=== PATIENT | male | born 1955 | race Caucasian/White ===

== ENCOUNTER 2020-12-19 19:02 | Inpatient (IN) | payer OTHER ==
[~2020-12-19] VITALS: Ht 167.6 cm; Wt 67.2 kg
--- NOTE | ~2020-12-19 | EMS ---
[address] [address] EMS Patient Care Report Name: LEONELA BARKLEY Room #: 242-P ADM IN M.R.#: [id number] Admission: 12/19/20 Attend Phys: Aaron Orta MD Discharge: Date of : 51 Report #: [id number] THIS REPORT FOR: //name// Report Transmitted: 12/22/2020 14:51 EMS Care Summary [place], [place]/[facility] Incident [id number] @ 12/19/2020 18:24 Incident Location [address] [place] [address] Patient MEIR BARKLEY Male, 65 Years 1955 Patient Address [address] [place] [address] Patient History Diabetes, Patient Allergies No known allergies, Chief Complaint HYPERGLYCEMIA Disposition Transported No Lights/[place] Dispatch Reason Sick Person Transported To [facility] Narrative PUMPER 37/MEDIC 30 WERE DISPATCHED TO THE ADDRESS LISTED PREVIOUSLY IN THIS REPORT ON A PATIENT WITH BREATHING PROBLEMS. UPON ARRIVAL, EMS OBSERVED ONE MALE PATIENT SITTING UPRIGHT IN A CHAIR. PATIENT WAS TRACKING EMS UPON APPROACH. PATIENT INFORMED EMS THAT HE HAD BEEN FEELING ILL FOR TWO DAYS PRIOR TO ARRIVAL. VITAL SIGNS WERE OBTAINED. PATIENT'S GLUCOSE LEVEL WAS OBSERVED TO BE "HIGH" (>500). PATIENT WAS THEN PLACED ON THE COT AND [place] [address] EMS Patient Care Report Name: LEONELA BARKLEY Room #: 242-P ADM IN M.R.#: [id number] Admission: 12/19/20 Attend Phys: Aaron Orta MD Discharge: Date of : 51 Report #: [id number] WITHOUT INCIDENT. ONCE IN THE AMBULANCE, VITAL SIGN MONITORING CONTINUED. IV ACCESS WAS OBTAINED AND FLUID BOLUS WAS GIVEN. ONCE ENROUTE TO THE RECEIVING FACILITY ([facility]), VITAL SIGN MONITORING CONTINUED AND RADIO RPEORT WAS GIVEN. UPON ARRIVAL AT THE RECEIVING FACILITY, PATIENT WAS MOVED FROM THE AMBULANCE TO THE HOSPITAL COT WITHOIT INCIDENT. VERBAL REPORT WAS GIVEN TO THE PATIENT'S NURSE AND PATIENT CARE WAS TRANSFERRED. Initial Vitals @18:32P: 120,R: 16,BP: 163/73,GCS: 15,Glucose: -2,SpO2: 97,Revised Trauma: 12, @18:45P: 116,R: 16,BP: 152/76,Pain: 0/10,GCS: 15,CO: 0,SpO2: 100,Revised Trauma: 12, Assessments @18:30MENTAL:Person Oriented,Time Oriented,Event Oriented,Place Oriented,SKIN:HEENT:LUNG SOUNDS:ABDOMEN:PELVIS//GI:EXTREMITIES:PULSE:Radial: 2+ Normal,NEURO: Impression Diabetic Hyperglycemia Procedures @18:45Saline Lock 500cc (20 ga) Site: Antecubital-LeftResponse: UnchangedSucceeded@18:30ALS AssessmentResponse: UnchangedSucceeded Timeline 18:23,Call Received 18:23,Dispatch Notified 18:24,Dispatched 18:25,En Route 18:28,On Scene 18:30,At Patient 18:30,ALS Assessment,Response: UnchangedSucceeded, 18:32,BP: 163/73 M,PULSE: 120,RR: 16 R,SPO2: 97 Ox,ETCO2: ,BG: -2,PAIN: ,GCS: 15, 18:45,Saline Lock 500cc 20 ga Site: Antecubital-Left,Response: UnchangedSucceeded, 18:45,BP: 152/76 M,PULSE: 116,RR: 16 R,SPO2: 100 Ox,ETCO2: ,BG: ,PAIN: 0,GCS: 15, 18:49,Depart Scene 18:59,At Destination 19:18,Call Closed Disclaimer v1.1 Copyright 2020 [email or web address] This EMS Care Summary contains data elements from the applicable legal record (which may be displayed differently). It is [place] [address] EMS Patient Care Report Name: LEONELA BARKLEY Room #: 242-P ADM IN [facility]#: [id number] Admission: 12/19/20 Attend Phys: Aaron Orta MD Discharge: Date of : 51 Report #: [id number] information for the following purposes: continuity of care, clinical quality, and state data reporting. The complete legal record is available to ED staff and administrators of the receiving hospital in [facility]'s Patient Tracker. All data is provided "as is."
[2020-12-19 19:02] VITALS: BP 146/65
[2020-12-19 20:12] LABS: HEMATOCRIT 39.1 % (42.0-52.0); HEMOGLOBIN 12.2 gm/dL (14.0-18.0); MCH 34.2 pg (26.0-34.0); MCHC 31.3 g/dL (28.0-37.0); MCV 109.4 fL (80.0-100.0); PLATELET COUNT 269 thou/uL (150-400); RBC 3.57 mil/uL (4.50-6.00); WBC 17.8 thou/uL (4.0-11.0)
[2020-12-19 20:31] LABS: ALBUMIN 3.4 g/dL (3.4-5.0); CALCIUM 8.4 mg/dL (8.5-10.1); CREATININE 2.5 mg/dL (0.7-1.3); MAGNESIUM 1.7 mg/dL (1.8-2.4); TOTAL BILIRUBIN 0.7 mg/dL (0.2-1.0); TOTAL PROTEIN 7.7 g/dL (6.4-8.2)
[2020-12-19 20:33] LABS: POTASSIUM 5.4 mmol/L (3.5-5.1)
[2020-12-19 20:45] LABS: METAMYELOCYTES 1 %
[2020-12-19 20:48] LABS: MACROCYTES 1+
[2020-12-19 21:23] LABS: BE(vivo) -28.1 mmol/L (-2 to +3); HCO3 2.2 mmol/L (22.0-26.0); PO2 146.8 mmHg (80.0-100.0); sO2 97.4 % (92.0-98.0)
[2020-12-19 21:24] LABS: PCO2 10.4 mmHg (35.0-45.0)
[2020-12-19 21:27] LABS: pH 6.951 (7.360-7.450)
[2020-12-19 23:40] VITALS: BP 135/61
[2020-12-20] VITALS (43 sets, daily range): BP systolic 100–150; BP diastolic 55–83
[2020-12-20 00:37] LABS: MAGNESIUM 1.8 mg/dL (1.8-2.4)
[2020-12-20 00:48] LABS: ALBUMIN 3.3 g/dL (3.4-5.0); CALCIUM 8.1 mg/dL (8.5-10.1); CREATININE 2.4 mg/dL (0.7-1.3); PHOSPHORUS 5.9 mg/dL (2.6-4.7)
--- NOTE | 2020-12-20 01:22 | NUR ---
PT ARRIVED FROM ER VIA CART. PT A&OX3, ON RA SATING 100%, NO C/O PAIN OR N/V. PT ATTACHED TO ICU MONITOR AND ASSESSED PER ICU PROTOCOL. RENEWABLE ENERGY TECHNICIAN BISHOP CALLED AND PUTTING ORDERS IN. DOMINGO INSERTED FOR STRICT I & O. INSULIN GTT INFUSING, FOLLOWING DKA PROTOCOL FOR IVF ADJUSTMENT.
[2020-12-20 03:14] LABS: URINE BILIRUBIN NEGATIVE (Negative); URINE BLOOD 2+ (Negative); URINE CLARITY CLEAR; URINE COLOR YELLOW; URINE GLUCOSE-RANDOM* 3+ (Negative); URINE KETONES 3+ (Negative); URINE LEUKOCYTES-REFLEX NEGATIVE (Negative); URINE NITRITE-REFLEX NEGATIVE (Negative); URINE PROTEIN (DIPSTICK) 1+ (Negative); URINE SPECIFIC GRAVITY 1.025 (1.005-1.035); URINE UROBILINOGEN 0.2 E.U./dl (0.2-1.0)
[2020-12-20 03:28] LABS: BACTERIA-REFLEX 1-9 Few /HPF (None Seen); MUCUS 4-6 Moderate strn/LPF (None Seen); SQUAMOUS 0-3 Few /LPF (0-3); URINE RBC 3-10 Few /HPF (NONE SEEN); URINE WBC-REFLEX 0-5 Rare /HPF (0-5)
[2020-12-20 03:29] LABS: CELLULAR CASTS 4-10 Moderate /LPF (None Seen); CRYSTALS None Seen /LPF (None Seen); HYALINE CASTS 4-10 Moderate /LPF (None Seen)
[2020-12-20 03:31] LABS: AMP/METHAMP Negative (Negative); BARBITURATES Negative (Negative); BENZODIAZEPINES Negative (Negative); COCAINE Negative (Negative); METHADONE Negative (Negative); OPIATES Negative (Negative); PCP Negative (Negative)
[2020-12-20 06:23] LABS: CHOLESTEROL 125 mg/dL (<200); HDL CHOLESTEROL 30 mg/dL (>40); LDL CHOLESTEROL 43 mg/dL (<100); TC:HDL 4.2 Ratio (Not establshd); TRIGLYCERIDE 260 mg/dL (<150); VLDL 52 mg/dL (<40)
[2020-12-20 06:34] LABS: SERUM ASSESSMENT Clear
[2020-12-20 06:58] LABS: HEMATOCRIT 35.2 % (42.0-52.0); HEMOGLOBIN 11.5 gm/dL (14.0-18.0); MCH 33.6 pg (26.0-34.0); MCHC 32.6 g/dL (28.0-37.0); RBC 3.41 mil/uL (4.50-6.00); RDW 13.1 % (10.5-14.5)
[2020-12-20 07:00] LABS: MCV 103.2 fL (80.0-100.0)
[2020-12-20 07:08] LABS: ALBUMIN 3.3 g/dL (3.4-5.0); CALCIUM 8.3 mg/dL (8.5-10.1); CREATININE 2.2 mg/dL (0.7-1.3); MAGNESIUM 1.6 mg/dL (1.8-2.4); PHOSPHORUS 1.9 mg/dL (2.5-4.9)
[2020-12-20 07:09] LABS: POTASSIUM 3.7 mmol/L (3.5-5.1)
--- NOTE | 2020-12-20 07:37 | EKG ---
[address] [place] [address] ELECTROCARDIOGRAM REPORT Name: LEONELA BARKLEY Room #: 242-P ADM IN M.R.#: [id number] Admission: 12/19/20 Attend Phys: Ronen Johnston Discharge: Date of : 51 Report #: [id number] [facility] Test Date: 2020-12-20 Test Time: 07:13:50 Pat Name: LEONELA BARKLEY Department: Room: 242 P Gender: M Oracle Ascp Consultant: : 1955 Requested By: Shayla Guardado Order Number: [id number] MD: Alberto Mccall Measurements Intervals [place] Rate: 101 P: 84 DE: 206 QRS: 8 QRSD: 86 T: 29 QT: 366 QTc: 475 Interpretive Statements Sinus tachycardia Borderline T wave abnormalities No previous ECG available for comparison Electronically Signed On 12-20-2020 7:37:14 CDT by Alberto Mccall [email or web address] <ELECTRONICALLY SIGNED> By: Alberto Mccall MD, [facility] 12/20/20 0737 0713 2 Alberto Mccall MD, FACC /EPI
[2020-12-20 08:05] LABS: FOLIC ACID 50.9 ng/mL (8.6-58.9)
[2020-12-20 09:03] LABS: APTT 29.6 Seconds (24.5-32.8); INR 1.1
[2020-12-20 10:47] LABS: ALBUMIN 2.7 g/dL (3.4-5.0); CALCIUM 8.1 mg/dL (8.5-10.1); MAGNESIUM 1.3 mg/dL (1.8-2.4); PHOSPHORUS 0.8 mg/dL (2.6-4.7); POTASSIUM 3.3 mmol/L (3.5-5.1)
[2020-12-20 15:38] LABS: CALCIUM 7.5 mg/dL (8.5-10.1); CREATININE 1.8 mg/dL (0.7-1.3); POTASSIUM 3.4 mmol/L (3.5-5.1)
--- NOTE | 2020-12-20 15:53 | 2DMMODE ---
[facility] [place] [address] 2 D/M-MODE ECHOCARDIOGRAM Name: LEONELA BARKLEY Room #: 242-P ADM IN M.R.#: [id number] Admission: 12/19/20 Attend Phys: Aaron Orta MD Discharge: Date of : 51 Report #: [id number] THIS REPORT FOR: cc: Jesus Avitia MD, James E. MD Santiago, Patrick MD [facility] ~ APPROVED REPORT Study performed: 12/20/2020 15:08:04 EXAM: Comprehensive 2D, Doppler, and color-flow Echocardiogram Patient Location: ICU Room #: 242 Status: routine BSA: 1.76 HR: 85 bpm BP: 124/60 mmHg Rhythm: NSR Other Information Study Quality: Technically Difficult Technically limited study due to uncooperative patient, inability to position patient. Indications Diabetes Dyspnea Elevated Troponin Aortic Valve AoV Peak Avni.: 1.46 m/s AO Peak Gr.: 8.57 mmHg LVOT Max P.54 mmHg LVOT Max V: 0.94 m/s Pulmonary Valve PV Peak Avni.: 0.86 m/s PV Peak Gr.: 2.99 mmHg Left Ventricle The left ventricle is normal size. There is normal LV segmental wall motion. There is normal left ventricular wall thickness. Left ventricular systolic function is normal. The left ventricular ejection fraction is within the normal range. LVEF is 55-60%. The diastolic function is abnormal. [facility] [address] [place] [address] 2 D/M-MODE ECHOCARDIOGRAM Name: LEONELA BARKLEY Room #: 242-P ADM IN M.R.#: [id number] Admission: 12/19/20 Attend Phys: Aaron Orta MD Discharge: Date of : 53 Report #: [id number] Right Ventricle The right ventricle is normal size. The right ventricular systolic function is normal. Atria The left atrium size is normal. The right atrium size is normal. Aortic Valve The Aortic valve is sclerotic. No aortic regurgitation is present. There is no aortic valvular stenosis. Mitral Valve The mitral valve is normal in structure. There is no mitral valve regurgitation noted. No evidence of mitral valve stenosis. Tricuspid Valve The tricuspid valve is normal in structure. There is no tricuspid valve regurgitation noted. Pulmonic Valve The pulmonary valve is normal in structure. There is no pulmonic valvular regurgitation. Great Vessels The aortic root is normal in size. IVC is normal in size and collapses >50% with inspiration. Pericardium There is no pericardial effusion. <Conclusion> Normal left ventricular size/wall thickness Ejection fraction 60% Grade 1 diastolic dysfunction Normal right ventricular size/function Normal atrial size Color-flow Doppler studies performed of the aortic/mitral/tricuspid/pulmonary valve Aortic valve not well seen but mildly sclerotic, no stenosis detected Normal mitral valve structure and function No tricuspid valve insufficiency detected [facility] [address] [place] [address] 2 D/M-MODE ECHOCARDIOGRAM Name: LEONELA BARKLEY Room #: 242-P ADM IN M.R.#: [id number] Admission: 12/19/20 Attend Phys: Aaron Orta MD Discharge: Date of : 53 Report #: [id number] No pericardial effusion Normal aortic root size. <ELECTRONICALLY SIGNED> By: Mayito Worrell MD, FACC 12/20/20 1553 155 52 Mayito Worrell MD, FACC /INF
--- NOTE | 2020-12-20 16:40 | NUR ---
Chart review, discussed during los and unit rounds. Enoc resting with eye closed. Cm visited with his Micaela [phone], intro to cm and dcp. He lives with another person it is compilated on [place]. He is independent, manage own medication, able to give himself his insulin. meter that checks his bs goes to our son Hi phone # [phone], also if high or low. Have 3 children. Does drink daily. no dme. drives vehicle. has Medicare insurance. retired. Had covid vaccine, last given on 06/16/20. No rehab or hh in the past. Will cont. following as needed for dc needs.
--- NOTE | 2020-12-20 16:57 | NUR ---
Attempted to call Myrtle Washburn for update, no response.
[2020-12-21] VITALS (21 sets, daily range): BP systolic 101–163; BP diastolic 58–90
[2020-12-21 02:06] LABS: GLYCOHEMOGLOBIN (HGB A1C) 9.7 % (4.8-5.6)
[2020-12-21 03:13] LABS: ABSOLUTE NEUTROPHILS 5.1 thou/uL (1.4-8.2); BASOPHILS 0.3 % (0.0-2.0); EOSINOPHILS 0.4 % (0.0-3.0); HEMATOCRIT 29.6 % (42.0-52.0); HEMOGLOBIN 10.4 gm/dL (14.0-18.0); LYMPHOCYTES 27.3 % (24.0-44.0); MCH 34.5 pg (26.0-34.0); MCHC 35.1 g/dL (28.0-37.0); MCV 98.5 fL (80.0-100.0); MONOCYTES 10.4 % (1.0-8.0); PLATELET COUNT 178 thou/uL (150-400); POLYS 61.6 % (36.0-66.0); WBC 8.2 thou/uL (4.0-11.0)
[2020-12-21 05:59] LABS: ALBUMIN 2.4 g/dL (3.4-5.0); CALCIUM 7.9 mg/dL (8.5-10.1); CREATININE 1.3 mg/dL (0.7-1.3); PHOSPHORUS 1.9 mg/dL (2.5-4.9); POTASSIUM 3.2 mmol/L (3.5-5.1); TOTAL BILIRUBIN 0.3 mg/dL (0.2-1.0); TOTAL PROTEIN 5.7 g/dL (6.4-8.2)
--- NOTE | 2020-12-21 07:42 | NUR ---
ASSUMED CARE AT 1900. PT ANXIOUS/NERVOUS BUT PLEASANT/COOPERATIVE W/CARES. NIGHT WENT ON, HE BECAME MORE CONFUSED, KEPT ASKING ABOUT HIS DOMINGO AND HOUW TO URINATE. WOKE UP AROUND 0200, THINKING HE WAS "IN THE WRONG PLACE" AND NEEDED TO GO HOME; REORIENTED HIM TO SITUATION, HE CALMED DOWN AND SEEMED TO UNDERSTAND WHY HE WAS IN THE ICU. 2200 APTT THERAPEUTIC, DAILY DRAW ORDERED, HEPARIN INFUSING OVERNIGHT. 0630-SPOKE TO PT'S SON CONCEPCION, WHO SAID HE HAD A MISSED CALL FROM PT AROUND 0230. DISCUSSED THIS MAY HAVE BEEN WHEN PT THOUGHT HE NEEDED TO LEAVE IN THE MIDDLE OF THE NIGHT, AND EXPLAINED PT MAY BE HAVING SOME CONFUSION/DELIRIUM ASSOCIATED w/ HIS CURRENT ILLNESS. ALSO DISCUSSED CARDIOLOGY'S PLAN FOR A CARDIAC CATH ONCE RENAL CLEARS PT, CONCEPCION IS IN SUPPORT OF THIS, STATING PT DOESN'T GET ENOUGH ATTENTION/MEDICAL CARE AT HOME w/HIS ROOMMATE. PT IRRITABLE AT SHIFT CHANGE, WANTING TO LEAVE AMA. ONCOMING AND OFFGOING RN SPOKE w/PT, EXPLAINED AGAIN ABOUT DKA, PNA, AND PT'S CARDIAC CONCERNS, BUT HE STATED "I WANT TO JUST GO TO MY DENTIST TO CLEAR THIS UP." WHEN TOLD HIS DENTIST COULDN'T MANAGE THIS, HE SAID "WELL I HAVE TWO DOCTORS WHO CAN TAKE CARE OF ME." ASKED THAT HE HAVE BREAKFAST AND WAIT FOR THE DOCTOR'S TO ROUND AND TALK WITH HIM BECAUSE HIS CURRENT CONDITION IS VERY SERIOUS. PT JUST KEPT STATING "YOU ALL ARE WEIRD, THESE DOCTORS ARE WEIRD" AND TALKING IN CIRCLES. PT HANDED OFF TO DAY RN.
--- NOTE | 2020-12-21 08:48 | EKG ---
[address] [address] ELECTROCARDIOGRAM REPORT Name: LEONELA BARKLEY Room #: 242-P ADM IN M.R.#: [id number] Admission: 12/19/20 Attend Phys: Aaron Orta MD Discharge: Date of : 51 Report #: [id number] [facility] ED Test Date: 2020-12-19 Test Time: 20:27:49 Pat Name: LEONELA BARKLEY Department: Room: 242 Gender: M Advertising Production Manager: unknown : 1955 Requested By: Antonio Jorge Order Number: [id number] MD: Mayito Worrell Measurements Intervals [place] Rate: 115 P: -87 [place]: 173 QRS: 3 QRSD: 96 T: 57 QT: 329 QTc: 455 Interpretive Statements NSR Anteroseptal infarct, old No previous ECG available for comparison Electronically Signed On 12-21-2020 8:47:32 CDT by Mayito Worrell [email or web address] <ELECTRONICALLY SIGNED> By: Mayito Worrell MD, LOCATED [facility]IN [facility] 12/21/20 0847 26 26 Mayito Worrell MD, FACC /EPI
--- NOTE | 2020-12-21 12:02 | NUR ---
NSTEMI with elevated Troponins. Placed on a Heparin gtt. DKA and on insulin gtt. Per attending MD AM review: Scheduled Cath today and pending results. Son Hi at [phone] and spouse Micaela at [phone] remain involved and updated on care and condition per nursing and MD teams. CM will follow for discharge needs once identified after MD review and therapy evaluations. CM asked for MD to place therapy orders.
[2020-12-21 13:37] LABS: HEMATOCRIT 33.2 % (42.0-52.0); HEMOGLOBIN 11.6 gm/dL (14.0-18.0); MCH 34.5 pg (26.0-34.0); MCHC 34.9 g/dL (28.0-37.0); MCV 98.8 fL (80.0-100.0); RBC 3.36 mil/uL (4.50-6.00); RDW 13.4 % (10.5-14.5); WBC 8.6 thou/uL (4.0-11.0)
[2020-12-21 14:10] LABS: APTT 54.7 Seconds (24.5-32.8); INR 0.97; PROTIME 10.6 Seconds (10.5-12.1)
--- NOTE | 2020-12-21 16:06 | CATHLAB ---
[facility] [place] [address] INVASIVE PROCEDURE REPORT Name: LEONELA BARKLEY Room #: 242-P ADM IN M.R.#: [id number] Admission: 12/19/20 Attend Phys: Aaron Orta MD Discharge: Date of : 53 Report #: [id number] THIS REPORT FOR: cc: Jesus Avitia MD, James E. MD Park, Jin S. MD ~ APPROVED REPORT Study performed: 12/21/2020 12:48:23 Patient Details Patient Status: In-Patient Room #: The patient is a 65 year-old male Event Personnel Apolinar Kemp Railroad Watchman, Milton Morel RN RN, Magda Em RTR Scrub, Kishor Little RTR Monitor Procedures Performed Art Access - R femoral artery* Left Heart Cath w/or w/o Coronaries [id number] [facility] [address] [facility] w/wo Plasty Single LAD 139596 21448 Initial Mod Sed Same Phys/QHP Gr5y 457532 29757 Mod Sed Same Phys/QHP Ea [id number] Indication Abnormal ECG, Non-STEMI , Dyspnea Risk Factors Peripheral Vascular Disease, HypercholesterolemiaPhysical Activity, Hypertension, Diabetes Tobacco History () Previous Procedures/Diagnoses Previous Femoral Procedure, Previous Vascular Surgery Procedure Narrative The Right Groin^ was infiltrated with 1% Lidocaine subcutaneous anesthesia. A PINNACLE 4FR Sheath #[id number] sheath was inserted into the RFA^. Coronary angiography was performed using coronary diagnostic catheters. The right coronary system was accessed and visualized with a JR4 catheter. The left coronary system was accessed and visualized with a JL4 catheter. The left ventricle was accessed and visualized with a PIGTAIL catheter. Left ventricular/Aortic Valve gradient assessed via catheter pullback. The patient tolerated the procedure well and there were no complications associated with the [facility] [address] [place] [address] INVASIVE PROCEDURE REPORT Name: LEONELA BARKLEY Room #: 242-P [facility] IN ..#: [id number] Admission: 12/19/20 Attend Phys: Aaron Orta MD Discharge: Date of : 51 Report #: [id number] procedure. There was no hematoma. Intraoperative Conscious Sedation Sedation start time: 13:36 Case end Time: 14:43 Fentanyl 100 mcg Versed 1 mg Fluoro Time: 16.60 minutes Dose: DAP 46630.20 cGycm2 3358 mGy Contrast Type and Amount: Visipaque 230 ml Coronary Angiography The patient's coronary anatomy is co- dominant. Diagnostic Cath Left Main The left main artery is a large-caliber vessel, calcified with mild disease in the proximal and distal segments. LAD This is a moderate-sized caliber vessel, traverses the anterior wall and wraps around the apex. There is moderate calcifications in the proximal and mid segments. Within the proximal segment, there is a severe discrete stenosis of 95%. Diagonal 1 This is a small to moderate-sized caliber vessel, patent with no flow-limiting lesions. Diagonal 2 This is a small to moderate-sized caliber vessel, patent with no flow-limiting lesions. Circumflex Left circumflex artery is a moderate-sized caliber vessel, codominant. There is mild disease at the ostium, 20%. OM1 This is a small to moderate-sized caliber vessel, patent with no flow-limiting lesions. OM2 This is a moderate-sized caliber vessel, divides into 2 branches. This vessel is patent with no flow-limiting lesions. OM3 This is a small to moderate-sized caliber vessel, patent with no flow-limiting lesions. Right Coronary The RCA is a patent vessel, with no flow-limiting lesions. R PDA This is a small caliber vessel, appears to be occluded proximally. There are partial collaterals to the distal vessel from the left coronary artery. Left Ventriculography Left Ventriculography was not performed. Ejection Fraction was 60-65% based off patient's Echocardiogram. An LVEDP was measured and there is no gradient across the outflow tract. Hemodynamics [facility] [address] [place] [address] INVASIVE PROCEDURE REPORT Name: FILIPPOLEONELA Room #: 242-P [facility] IN M.R.#: [id number] Admission: 12/19/20 Attend Phys: Aaron Orta MD Discharge: Date of : 53 Report #: [id number] The aortic pressure is 146/61 mmHg with a mean of 95 mmHg. The left ventricular pressure is 158/10 mmHg with a mean of mmHg. The left ventricular end diastolic pressure is 20 mmHg. There was no gradient across the aortic valve upon pullback. PCI Technique Lesion Percutaneous coronary intervention was performed on the proximal left anterior descending artery segment. The lesion stenosis prior to intervention was 95% with RICKY 3 flow. A VISTA 6FR XB 3.5 #775135 Guide Catheter was used to engage the LAD ostium. A Luge Wire .014 x 182CM #[id number] Interventional Guidewire was used to cross the lesion. BALLOON DILATION A Balloon catheter Euphora RX 2.5 x 12 #[id number] was inserted and inflated up to 18.00atm for 34seconds. A balloon catheter NC Euphora 2.5x12mm was inserted and inflated up to 24 trung for 37 sec. additional inflations: 18 trung for 10 sec. A balloon catheter NC Euphora 2.36o61sg was inserted and inflated up to 6 trung for 6 sec. Additional inflations: 16 trung for 22 sec, and 16 trung for 11 sec. STENT DEPLOYMENT A stent RESOLUTE KAYY RX 3.0 X 12 #[id number] was inserted and inflated up to 16.00atm for 23seconds. POST STENT DEPLOYMENT BALLOON DILATION A Balloon catheter Euphora NC RX 3.25 x 6 #[id number] was inserted and inflated up to 18.00atm for 20seconds. Additional Inflation: 18.00atm for 10seconds. Final angiography reveals 5 % stenosis with RICKY 3 flow. COMMENTS Using the 2.5 mm noncompliant balloon was unsuccessful in fully dilating the lesion. There was a residual stenosis at the lesion site. I used a second loulou wire to help dilate the lesion. A 2.75 mm noncompliant balloon, was inflated up to 16 trung resulting in successful expansion of the stenotic area. Conclusion 1. Successful insertion of a drug-eluting stent into the proximal LAD stenosis. 2. There is mild disease in the left main and left circumflex arteries. [facility] [address] [place] [address] INVASIVE PROCEDURE REPORT Name: LEONELA BARKLEY Room #: 242-P ADM IN M.R.#: [id number] Admission: 12/19/20 Attend Phys: Aaron Orta MD Discharge: Date of : 51 Report #: [id number] 3. This is a codominant system. 4. 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 5. There is normal LV systolic function. 6. Recommend dual antiplatelet therapy and aggressive risk factor management. <ELECTRONICALLY SIGNED> By: Apolinar Kemp MD 12/21/20 1605 04 04 Apolinar Kemp MD /INF
--- NOTE | 2020-12-21 18:36 | NUR ---
PT HAD A CARDIAC CATH PERFROMED TODAY IN WHICH HE HAD 1 STENT PLACED IN LAD. PT WAS INITALLY VERY AGITATED AND CONFUSED THIS MORNING AND AFTER 8AM WHEN FAMILY ARRIVED PT IS MUCH MORE PLEASANT HOWEVER, REMAINS CONFUSED. PT WAS OFF THE UNIT FROM APPROX 1145AM-545PM TODAY. HOMESTATSIS 1730. SITE IS CLEAN, NO REDNESS, SWELLING OR SIGNS OF COMPLICATIONS AT SURGICAL SITE.
[2020-12-22] VITALS (50 sets, daily range): BP systolic 79–152; BP diastolic 44–87
[2020-12-22 06:25] LABS: HEMATOCRIT 33.9 % (42.0-52.0); HEMOGLOBIN 11.9 gm/dL (14.0-18.0); MCH 34.2 pg (26.0-34.0); MCV 97.7 fL (80.0-100.0); RBC 3.47 mil/uL (4.50-6.00); RDW 12.8 % (10.5-14.5); WBC 9.7 thou/uL (4.0-11.0)
[2020-12-22 07:04] LABS: ALBUMIN 2.5 g/dL (3.4-5.0); CALCIUM 7.8 mg/dL (8.5-10.1); CREATININE 1.1 mg/dL (0.7-1.3); MAGNESIUM 1.4 mg/dL (1.8-2.4); PHOSPHORUS 2.6 mg/dL (2.5-4.9); TOTAL BILIRUBIN 0.7 mg/dL (0.2-1.0); TOTAL PROTEIN 6.4 g/dL (6.4-8.2)
--- NOTE | 2020-12-22 08:11 | EKG ---
[place] [address] [facility] [place] [address] ELECTROCARDIOGRAM REPORT Name: LEONELA BARKLEY Room #: 242-P ADM IN M.R.#: [id number] Admission: 12/19/20 Attend Phys: Aaron Orta MD Discharge: Date of : 51 Report #: [id number] [facility] Test Date: 2020-12-21 Test Time: 18:41:09 Pat Name: LEONELA BARKLEY Department: Room: 242 P Gender: M Day Camp Counselor: FSCHWALGIULIANO : 1955 Requested By: Apolinar Kemp Order Number: [id number] MD: Alberto Mccall Measurements Intervals [place] Rate: 72 P: 34 PA: 181 QRS: 6 QRSD: 85 T: 12 QT: 435 QTc: 477 Interpretive Statements Sinus rhythm Anterior infarct, old Baseline wander in lead(s) V1 Compared to ECG 12/20/2020 07:13:50 Septal Q waves are now present Sinus tachycardia no longer present T-wave abnormality no longer present Electronically Signed On 12-22-2020 8:11:42 CDT by Alberto Mccall [email or web address] <ELECTRONICALLY SIGNED> By: Alberto Mccall MD, [facility] 12/22/20 0811 1841 184 Alberto Mccall MD, [facility] /EPI
--- NOTE | 2020-12-22 08:16 | NUR ---
PT RESTLESS & BELLIGERANT. I'M NOT STAYING HERE. PULLING OFF ALL LEADS-GET THIS SH OFF ME.ORIENTED TO NAME & ,YEAR & MONTH ONLY. EXPLAINED EVENTS.STATED MY HEART ATTACK WAS MILD & CONT'S TO PULL OFF ALL LEADS. I'M OUT OF HERE. CIWA 16. PAGE TO THRU BEEPER.--VW
[2020-12-23] VITALS (69 sets, daily range): BP systolic 65–145; BP diastolic 35–74
[2020-12-23 05:46] LABS: ALBUMIN 1.7 g/dL (3.4-5.0); CALCIUM 6.2 mg/dL (8.5-10.1); CREATININE 0.7 mg/dL (0.7-1.3); PHOSPHORUS 1.9 mg/dL (2.5-4.9); POTASSIUM 3.6 mmol/L (3.5-5.1)
--- NOTE | 2020-12-23 06:06 | NUR ---
PT REMAINS RESTRAINED DUE TO AGGITATION AND IMPULSIVENESS. PT ALERT TO SELF AND TIME. NO ACUTE EVENTS OVERNIGHT. WILL CONTINUE TO ASSESS FOR CIWA.
[2020-12-23 07:05] LABS: HEMATOCRIT 34.1 % (42.0-52.0); HEMOGLOBIN 11.3 gm/dL (14.0-18.0); RBC 3.41 mil/uL (4.50-6.00); RDW 13.1 % (10.5-14.5); WBC 8.2 thou/uL (4.0-11.0)
--- NOTE | 2020-12-23 08:25 | EKG ---
[place] [address] [facility] [place] [address] ELECTROCARDIOGRAM REPORT Name: LEONELA BARKLEY Room #: 242-P ADM IN M.R.#: [id number] Admission: 12/19/20 Attend Phys: Aaron Orta MD Discharge: Date of : 51 Report #: [id number] [facility] Test Date: 2020-12-23 Test Time: 08:07:28 Pat Name: LEONELA BARKLEY Department: Room: 242 P Gender: M Java Developer Architect: LOREN : 1955 Requested By: Myrtle Seth Order Number: [id number] MD: Alberto Mccall Measurements Intervals [place] Rate: 74 P: -21 [place]: 216 QRS: -3 QRSD: 90 T: 109 QT: 482 QTc: 535 Interpretive Statements Sinus rhythm Borderline prolonged IL interval Probable anterior infarct, age indeterminate Lateral leads are also involved Prolonged QT interval Compared to ECG 12/21/2020 18:41:09 Prolonged QT interval now present Anterolateral T wave abnormality is new Electronically Signed On 12-23-2020 8:24:53 CDT by Alberto Mccall [email or web address] <ELECTRONICALLY SIGNED> By: Alberto Mccall MD, [facility] 12/23/20 0824 6 Alberto Mccall MD, [facility] /EPI
--- NOTE | 2020-12-23 12:13 | NUR ---
If pt unable to start taking po in next 24-48hr, suggest clinimix PPN at goal 100ml/hr.
--- NOTE | 2020-12-23 15:40 | NUR ---
Discussed during los and unit rounds., restraints for aggressiveness, impulsive agitation and , trying pull at lines. Refusing po medication. No anticipated dc over the weekend, will cont. following as needed for dc needs. Son brought in copy of his insurance cards, cm fax to registration and put copy on his chart.
[2020-12-24] VITALS (44 sets, daily range): BP systolic 90–168; BP diastolic 47–82
--- NOTE | 2020-12-24 04:36 | NUR ---
Slow progress toward goals. Off Precedex and levophed now; CIWA currently 4. Blood sugars still running > 200 despite Lantus and sliding scale. Remains on room air, sat > 95%. Urine output more than adequate. Has slept most of night without co.
--- NOTE | 2020-12-24 04:52 | NUR ---
Levophed and Precedex gtts restarted. CIWA back up to 9, pt also c/o of light sensitivity.
[2020-12-24 05:23] LABS: HEMATOCRIT 32.7 % (42.0-52.0); HEMOGLOBIN 11.1 gm/dL (14.0-18.0); MCH 33.1 pg (26.0-34.0); MCHC 33.8 g/dL (28.0-37.0); RBC 3.34 mil/uL (4.50-6.00); RDW 13.1 % (10.5-14.5); WBC 9.4 thou/uL (4.0-11.0)
[2020-12-24 05:55] LABS: ALBUMIN 2.1 g/dL (3.4-5.0); CALCIUM 7.9 mg/dL (8.5-10.1); CREATININE 1.1 mg/dL (0.7-1.3); PHOSPHORUS 3.5 mg/dL (2.5-4.9); POTASSIUM 3.5 mmol/L (3.5-5.1)
--- NOTE | 2020-12-24 14:20 | NUR ---
THIS RN TOOK OVER PATIENT AT 0700 FROM LOCOMOTIVE ENGINEER NURSE. PT WAS ON PRECEDEX DRIP. TRIED TURNING IT OFF AND GIVING ATIVAN. PT BECAME AGITATED AND WANTED TO LEAVE. PRECEDEX WAS TURNED BACK ON. PT RECEIVING PRN ATIVAN FOR AGITATION. PT CURRENTLY RESTING AND IS CALM. PT SATTING >95% ON ROOM AIR. WILL CONTINUE TO MONITOR
--- NOTE | 2020-12-24 15:49 | NUR ---
pt both rings were handed to son Berto today.
--- NOTE | 2020-12-24 16:07 | NUR ---
PT BRACELET WAS GIVEN TO PT SON SERENITY TODAY.
[2020-12-25] VITALS (47 sets, daily range): BP systolic 89–166; BP diastolic 53–91
[2020-12-25 04:21] LABS: HEMATOCRIT 32.8 % (42.0-52.0); HEMOGLOBIN 11.3 gm/dL (14.0-18.0); MCHC 34.6 g/dL (28.0-37.0); MCV 98.3 fL (80.0-100.0); RBC 3.33 mil/uL (4.50-6.00); RDW 13.2 % (10.5-14.5); WBC 8.7 thou/uL (4.0-11.0)
[2020-12-25 04:22] LABS: CALCIUM 8.3 mg/dL (8.5-10.1); CREATININE 0.8 mg/dL (0.7-1.3); MAGNESIUM 1.4 mg/dL (1.8-2.4); PHOSPHORUS 3.3 mg/dL (2.5-4.9)
[2020-12-25 04:25] LABS: POTASSIUM 2.9 mmol/L (3.5-5.1)
--- NOTE | 2020-12-25 06:55 | NUR ---
PT ALERT AND ORIENT TIMES TWO, FORGETFUL. SON FLYNN CALLED FOR STATUS UPDATE. DID ALSO SPEAK TO PARTNER. TITRATED PRECEDEX FOR LIGHT SEDATIONG. WRIST RESTRAINTS INTACT AND UPDATED. SR PER MONITOR. UO ADEQUATE, NO BM. REPLACED K+ THIS AM, NEXT REDRAW AT 0830. CIWA = 7. L UA TL PICC INTACT, PATENT. SLOW PROGRESS TOWARDS DC GOALS. WILL CONTINUE TO MONITOR.
--- NOTE | 2020-12-25 18:20 | NUR ---
PT IS ALERT TO SELF AND THE MAJORITY OF HIS FAMILY MEMBERS, HE IS STILL CONFUSED ON WHERE HE IS LOCATED AND WHAT CITY WE ARE IN. WILL OCCASSIONALLY SEE THINGS THAT ARE NOT THERE. HIS FAMILY HAS BEEN VISITING HIM ONE AT A TIME THROUGHOUT THE DAY AND HAS BEEN VERY HELPFUL TO THE PATIENT AND STAFF WITH KEEPING PATIENT CALM AND ORIENTED. PT WAS OFF PRECEDEX DRIP FOR APPROX 4HRS TODAY TO REASSESS ORIENTATION AND TO AWAKEN PATIENT FULLY TO ASSESS ABILITY TO SWALLOW. PT ABLE TO TOLERATE APPLESAUCE AND ICE CHIPS WELL PURREED FOOD TODAY. PT ABLE TO FOLLOW COMMANDS. WILL NEED PT/OT AND SPEECH EVAL HARISH TO START WORKING ON MOBILITY FOR THE PATIENT HE HAS GOTTEN VERY STIFF AND PAINFUL JOINTS. NURSING STAFF PROVIDED ROM EXERCISES TO PATIENT. WAS NOT ABLE TO GIVE PT PO METOPROLOL TODAY DUE TO PATIENT NOT BEING ABLE TO SWALLOW PILLS AND THIS MEDICATION NOT BEING ABLE TO BE CRUSHED. PT B/P ALSO BORDERLINE HYPOTENSIVE AT TIMES AND MAY NOT TOLERATIVE IVP METOPROLOL. WILL CONTINUE TO REASSESS, PROMOTE SAFETY AND FOLLOW POC.
[2020-12-26] VITALS (23 sets, daily range): BP systolic 103–156; BP diastolic 52–126
[2020-12-26 04:53] LABS: HEMATOCRIT 28.6 % (42.0-52.0); HEMOGLOBIN 9.8 gm/dL (14.0-18.0); MCHC 34.4 g/dL (28.0-37.0); MCV 98.7 fL (80.0-100.0); RBC 2.9 mil/uL (4.50-6.00); RDW 13.1 % (10.5-14.5); WBC 10.3 thou/uL (4.0-11.0)
[2020-12-26 05:10] LABS: ALBUMIN 1.7 g/dL (3.4-5.0); CALCIUM 7.8 mg/dL (8.5-10.1); PHOSPHORUS 3.2 mg/dL (2.5-4.9); POTASSIUM 3.3 mmol/L (3.5-5.1)
--- NOTE | 2020-12-26 06:31 | NUR ---
FREQUENTLY MONITORED ORIENTATION STATUS. PT COOPERATIVE AND PLEASANT MOST OF SHIFT. TITRATED PRECEDEX DOWN TOLERATED. WILL CONTINUE TO MONITOR.
--- NOTE | 2020-12-26 08:50 | NUR ---
Chart review. Discussed during am unit rounds and los with hospitalist. Restraints dc per report. bedside nurses assist him with breakfast. Patient A & O x self and son. He cont. to ask if he was staying here tonight. Noted he's clam. Son at bedside, Hi. Cm visited with son and patient, education on dcp, therapy possible needed for weakness. New orders pt/ot eval. Son had question about support after dc, closer to being able to return home, don't want him around alcohol and his roommate drinks as well. Education on places like [facility] inpt alcohol support after skilled rehab if needed. Son agrees with dcp. Will cont. following as needed or dc needs.
[2020-12-27 04:23] VITALS: BP 173/86
[2020-12-27 05:13] LABS: HEMOGLOBIN 10.7 gm/dL (14.0-18.0); MCHC 34.5 g/dL (28.0-37.0); MCV 98.7 fL (80.0-100.0); RBC 3.14 mil/uL (4.50-6.00); RDW 13.3 % (10.5-14.5); WBC 10.5 thou/uL (4.0-11.0)
[2020-12-27 05:20] LABS: ALBUMIN 2.1 g/dL (3.4-5.0); CALCIUM 8.4 mg/dL (8.5-10.1); CREATININE 1.2 mg/dL (0.7-1.3); PHOSPHORUS 2.8 mg/dL (2.5-4.9); POTASSIUM 3.3 mmol/L (3.5-5.1)
[2020-12-27 08:00] VITALS: BP 135/70
--- NOTE | 2020-12-27 08:37 | NUR ---
PT WAS TRANSFER FROM ICU AT 2345, PT VERY RESTLESS AND PICKING AT DEVICES. IN REPORT CIWA WAS STATED AT A 11. POC FOR CIWA WAS ATIVAN. CIWA'S WERE REQUIRING 2MG ATIVAN Q2. FLUIDS RESTARTED. IV LOPRESSOR GIVEN AT 0300 FOR HR IN 120-130. DOMINGO IN WITH GOOD OUTPUT. SPOKE TO PT SON ABOUT MOVE TO STEP DOWN FROM ICU AND VISITOR POLICY. PT FINALLY SLEEPING AT 0530.
[2020-12-27 12:00] VITALS: BP 134/68
--- NOTE | 2020-12-27 13:55 | EKG ---
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: LOREN : 1955 Requested By: Myrtle Seth Order Number: [id number] MD: Mayito Worrell Measurements Intervals [place] Rate: 110 P: MD: QRS: -2 QRSD: 87 T: 168 QT: 295 QTc: 400 Interpretive Statements SINUS TACHYCARDIA Ventricular premature complex Anteroseptal infarct, age indeterminate Baseline wander in lead(s) V4 Compared to ECG 12/23/2020 08:07:28 Ventricular premature complex(es) now present Prolonged QT interval no longer present Myocardial infarct finding still present Electronically Signed On 12-27-2020 13:54:46 CDT by Mayito Worrell [email or web address] <ELECTRONICALLY SIGNED> By: Mayito Worrell MD, [facility] 12/27/20 1354 3 3 Mayito Worrell MD, [facility] /EPI
--- NOTE | 2020-12-27 14:39 | NUR ---
Patient transferred to CCU from ICU. Patient in ETOH withdraw, request 5N consult.
[2020-12-27 15:45] VITALS: BP 146/78
[2020-12-27 17:00] LABS: URINE BILIRUBIN NEGATIVE (Negative); URINE BLOOD 3+ (Negative); URINE CLARITY CLEAR; URINE COLOR YELLOW; URINE GLUCOSE-RANDOM* 2+ (Negative); URINE KETONES 1+ (Negative); URINE LEUKOCYTES NEGATIVE (Negative); URINE NITRITE NEGATIVE (Negative); URINE PROTEIN (DIPSTICK) 1+ (Negative); URINE UROBILINOGEN 0.2 E.U./dl (0.2-1.0)
[2020-12-27 17:20] LABS: CASTS None Seen /LPF (None Seen); SQUAMOUS 0-3 Few /LPF (0-3)
[2020-12-27 17:21] LABS: BACTERIA 1-9 Few /HPF (None Seen); CRYSTALS None Seen /LPF (None Seen); URINE WBC 1-5 Rare /HPF (NONE SEEN)
--- NOTE | 2020-12-27 17:49 | NUR ---
PT WAS SOMMULENT TODAY, VSS STABLE. PER REPORTS BY FAMILY AND DR GUERRA, HE IS MARKEDLY DIFFERENT TODAY. NO ACTIVE HALLUCINATIONS. PT WORKED WITH PT/OT. PT AFEBRILE, ADEQUATE UOP, NO BM, CONCERN FOR ASPIRATION (PROVIDER AWARE). PAROXSOMAL AFIB ON TELE. RIGHT FEMORAL SITE IS C/D/I, SMALL HEMATOMA BUT SOFT AND NON-TENDER. POTASSIUM REPLACED PER [facility] PROTOCOL. LESVIA-PICC IN PLACE, REPORT WAS GIVEN TO ME THAT VASCULAR ACCESS TEAM LEFT ALTAPLASE IN RED PORT ON LINE. THIS LINE IS MARKED SO IT IS NOT TO BE USED, VASCULAR ACCESS IS SUPPOSED TO BE BY TO RE-ASSESS. PT, , AND SONS HAVE BEEN THOUROUGHLY UPDATED AND EDUCATED ON PT CONDITION AND POC. PT SLOWLY PROGRESSING TOWARDS POC.
[2020-12-27 19:58] VITALS: BP 124/75
[2020-12-28 03:30] VITALS: BP 104/55
--- NOTE | 2020-12-28 04:27 | NUR ---
PT IS ALERT TO SELF DROWSY AT TIMES. LUNGS ARE COARSE WITH A COARSE COUGH NOTED. DOMINGO TO DD WITH YELLOW URINE PRESENT.ACCU CHECKS Q 6 WITH SLIDING SCALE COVERAGE NOTED. TURN Q 2 HOURS. TYLNOL GIVNE FOR NECK AND BACK PAIN PT REPORTS. REPLACE POTASIUM PER PROTOCAL ONGOING NURISNG CARE AT THIS TIME. CALL LIGHT WITHIN REACH. AND FREQENT ROUNDING ON PT FOR CARE
[2020-12-28 08:30] VITALS: BP 121/60
[2020-12-28 09:04] LABS: CALCIUM 8.5 mg/dL (8.5-10.1); CREATININE 1.1 mg/dL (0.7-1.3); MAGNESIUM 1.5 mg/dL (1.8-2.4)
[2020-12-28 09:30] LABS: POTASSIUM 2.9 mmol/L (3.5-5.1)
--- NOTE | 2020-12-28 10:34 | NUR ---
Dr. Orta present at 0945, updated on critical k 2.9, orders received. first dose kcl replacement infusing already. to radiology per cart for head ct. present, updated on meds and all cares. answering questions to satisfaction.
[2020-12-28 12:46] VITALS: BP 140/71
[2020-12-28 16:30] VITALS: BP 112/62
--- NOTE | 2020-12-28 16:35 | NUR ---
Case discussed with the care team. 5N evaluated and can accept the pt when medically stable. Pt may be ready for acute rehab in 1-2 days pending his progress. Will follow.
--- NOTE | 2020-12-28 17:39 | NUR ---
, son present today, updated on pt status. pt up in chair today prior to montelongo removal. more important for pt to sit in chair, then have to montelongo removal delayed until pt back into bed. pt unable to manage his urine output or use a urinal at this time. pt encouraged to consume at least part of his meals. only able to obtain a few bites, then absolutely refuses despite prompting of staff and family. kcl replacement continuing at this time.
[2020-12-28 20:30] VITALS: BP 125/61
--- NOTE | 2020-12-29 02:30 | NUR ---
SLEEPING AT PRESENT TIME WITHOUT COMPLAINTS. CONTINUE TO ASSES.
[2020-12-29 04:45] VITALS: BP 148/61
[2020-12-29 05:11] LABS: ALBUMIN 1.9 g/dL (3.4-5.0); CALCIUM 8.3 mg/dL (8.5-10.1); CREATININE 1.2 mg/dL (0.7-1.3); POTASSIUM 3.4 mmol/L (3.5-5.1); TOTAL BILIRUBIN 0.7 mg/dL (0.2-1.0); TOTAL PROTEIN 6.3 g/dL (6.4-8.2)
[2020-12-29 05:12] LABS: HEMOGLOBIN 9.4 gm/dL (14.0-18.0); MCH 34.4 pg (26.0-34.0); MCHC 34.8 g/dL (28.0-37.0); MCV 98.8 fL (80.0-100.0); RBC 2.73 mil/uL (4.50-6.00); RDW 13.3 % (10.5-14.5); WBC 9.4 thou/uL (4.0-11.0)
--- NOTE | 2020-12-29 06:07 | NUR ---
RECEIVED REPORT FROM KAYLA CHE.ASSUMED CARE AT 0100 AM.PT SLEEPING.THIS MORNING AT 6AM PT STATES "HOW DO I GET OUT OF HERE? I WANT TO BUY SOMETHING".BED ALARM ON.MONITOR SHOWS ST.POC CONTINUED.
[2020-12-29 07:40] VITALS: BP 143/78
[2020-12-29 11:25] VITALS: BP 127/78
[2020-12-29] MEDS ORDERED: EFFIENT10 MG PO (11:51)
[2020-12-29] MEDS ORDERED: LIPITOR40 MG PO (11:51)
[2020-12-29] MEDS ORDERED: METOPROLOL SUCC50 MG PO (11:51)
[2020-12-29] MEDS ORDERED: VITAMIN B-1100 M2 PO (11:51)
[2020-12-29] MEDS ORDERED: BAYER CHEWABLE81 MG PO (11:51)
[2020-12-29] MEDS ORDERED: LANTUS SUBQ (11:51)
[2020-12-29] MEDS ORDERED: Nicotine Transdermal TRANSDERM (11:51)
--- NOTE | 2020-12-29 14:14 | NUR ---
WOUND CONSULT; ASSESSMENT COMPLETED PRIOR TO THE PATIENT ADVANCEMENT TO THE REHAB UNIT. THE PATIENT HAS NO ACUTE WOUNDS. STABLE SCABBED AREAS TO THE LE'S BILATERALLY. THE COCCYX AREA HAS A BORDER FOAM ALTHOUGH THERE IS ONLY BLANCHABLE ERYTHEMA. RECCOMMENDATIONS; -BARRIER CREAM TO ALL AREAS OF THE BUTTOCKS,SACRUM AND COCCYX FROR PREVENTION AT THIS POINT. -ADD A LOW AIR LOSS BED PUMP. DISCUSSED WITH .
--- NOTE | 2020-12-29 14:58 | NUR ---
5N REHAB INSRUCT TO LEAVE LEFT UPPER ARM PICC LINE IN WHEN PT IS DISCHARGED TO REHAB.
--- NOTE | 2020-12-29 15:17 | NUR ---
Pt dcing to 5N acute rehab today. The 5N liason has talked with both the pt's son/ to answer any questions. 5N cm to follow for dc planning needs.
--- NOTE | 2020-12-29 15:48 | NUR ---
REPORT CALLED TO PUBLICATIONS WRITER (KEITH) BY PHILIP MUÑOZ RN. TELE DISCONTINUED AND PT DISCAHRGED TO ROOM 503 ON REHAB UNIT.
== END 2020-12-29 15:42 | DRG 246 ==
LOC: ER 19:02 → ICU 21:08 → EROBS 21:08 → ICU 12-20 01:00 → 2N 12-26 23:39
PROVIDERS: Emergency Medicine; Hospitalist; Internal Medicine; Internal Medicine Cardiovascular Disease; Nurse Practitioner; Nurse Practitioner Family; ADMIT Hospitalist; ATTEND Hospitalist
PROC: B211YZZ Fluoroscopy of Multiple Coronary Arteries using Other Contrast (ICD-10-PCS; principal; 2020-12-21)
PROC: 4A023N7 Measurement of Cardiac Sampling and Pressure, Left Heart, Percutaneous Approach (ICD-10-PCS; principal; 2020-12-21)
PROC: 027034Z Dilation of Coronary Artery, One Artery with Drug-eluting Intraluminal Device, Percutaneous Approach (ICD-10-PCS; principal; 2020-12-21)
PROC: 05HY33Z Insertion of Infusion Device into Upper Vein, Percutaneous Approach (ICD-10-PCS; 2020-12-22)
DX: I21.4 Non-ST elevation (NSTEMI) myocardial infarction (principal); E11.10 Type 2 diabetes mellitus with ketoacidosis without coma; J96.01 Acute respiratory failure with hypoxia; J18.9 Pneumonia, unspecified organism; R65.11 Systemic inflammatory response syndrome (SIRS) of non-infectious origin with acute organ dysfunction; N17.0 Acute kidney failure with tubular necrosis; G93.41 Metabolic encephalopathy; E87.2 Acidosis; F10.139 Alcohol abuse with withdrawal, unspecified; Z20.822 Contact with and (suspected) exposure to COVID-19; S09.90XA Unspecified injury of head, initial encounter; E78.5 Hyperlipidemia, unspecified; F17.210 Nicotine dependence, cigarettes, uncomplicated; E83.42 Hypomagnesemia; E83.39 Other disorders of phosphorus metabolism; E87.6 Hypokalemia; E11.51 Type 2 diabetes mellitus with diabetic peripheral angiopathy without gangrene; I70.0 Atherosclerosis of aorta; I95.9 Hypotension, unspecified; I25.10 Atherosclerotic heart disease of native coronary artery without angina pectoris; M21.379 Foot drop, unspecified foot; R41.0 Disorientation, unspecified; Z71.6 Tobacco abuse counseling; Z71.41 Alcohol abuse counseling and surveillance of alcoholic; Z79.82 Long term (current) use of aspirin; Z79.899 Other long term (current) drug therapy; Z83.3 Family history of diabetes mellitus; Z95.820 Peripheral vascular angioplasty status with implants and grafts; X58.XXXA Exposure to other specified factors, initial encounter; Y93.89 Activity, other specified; Y92.89 Other specified places as the place of occurrence of the external cause; Y99.8 Other external cause status
CPT/HCPCS: 10078; 10081; 50455

== ENCOUNTER 2020-12-29 11:58 | Inpatient (IN) | payer OTHER ==
[~2020-12-29] VITALS: Ht 170.2 cm; Wt 65.2 kg
[~2020-12-29 11:58] MED LIST: BAYER CHEWABLE81 MG PO; EFFIENT10 MG PO; LANTUS SUBQ; LIPITOR40 MG PO; METOPROLOL SUCC50 MG PO; Nicotine Transdermal TRANSDERM; VITAMIN B-1100 M2 PO
--- NOTE | 2020-12-29 16:16 | NUR ---
1600 PATIENT ADMITTED TO ROOM 503 PER HIS BED. PATIENT IS SLEEPY AT THIS TIME. IN REPORT PATIENT IS ALERT AND ORIENTEDX2. PATIENT VALDEZ'S, BUSINESS INFORMATION ANALYST ARE EQUAL. LUNGS ARE CLEAR AND DEMINISHED. ABD IS SOFT WITH BSX4. PATIENT IS INCONTINENT OF URINE. PATIENT IS RESTING IN BED WITH CALL LIGHT IN REACH. SON AT BEDSIDE. FALL AND SAFETY PROTOCOLS IN PLACE. DENIES PAIN AT THIS TIME. PATIENT HAS WOUND ON TOP OF HIS HEAD THAT HAS SURG GLUE OVER SITE, THIS AREA IS HEALING. ABRASIONS ON HIS LOWER EXTREMITIES OPEN TO AIR AND SCABBED OVER. PATIENT HAS TRIPLE LUMIN PICC IN HIS LEFT UPPER ARM. PT/OT/ST EVALS TO BE DONE IN A.M. WILL CONTINUE TO MONITER.
[2020-12-29 19:22] VITALS: BP 115/63
--- NOTE | 2020-12-29 22:01 | NUR ---
ASSUMED CARE OF PATIENT AT 1900. AT HS PATIENT BG WAS ELEVATED TO 309. SEWER SEPARATION DESIGNER BISHOP NOTIFIED, AND ADVISED TO ADMINISTER SCHEDULED 32UNITS OF LANTUS AND RECHECK BG AROUND 0000. LANTUS ADMINISTERED. AND FULL LINEN CHANGE PERFORMED DUE TO PATIENT HAVING AN EPISODE BLADDER INCONTINENCE, PATIENT IS REMINDED TO USE CALL LIGHT WHEN FEELING THE URGE TO VOID. PATIENT IS A&O TO SELF ONLY AND REQUIRES REORIENTATION TO PALCE, TIME AND SITUATION. PO HONEY THICK FLUIDS ENCOURAGED. WILL CONTINUE TO MONITOR.
[2020-12-30 04:58] LABS: HEMOGLOBIN 9.7 gm/dL (14.0-18.0); MCH 32.7 pg (26.0-34.0); MCHC 33.6 g/dL (28.0-37.0); MCV 97.5 fL (80.0-100.0); RBC 2.97 mil/uL (4.50-6.00); RDW 13.1 % (10.5-14.5); WBC 7.8 thou/uL (4.0-11.0)
[2020-12-30 05:09] LABS: CALCIUM 8.8 mg/dL (8.5-10.1); CREATININE 1.1 mg/dL (0.7-1.3); POTASSIUM 3.1 mmol/L (3.5-5.1)
--- NOTE | 2020-12-30 05:35 | NUR ---
PATIENT CARE WAS RESUMED AT 0100. HE IS ALERT AND ABLE TO VERBALIZE NEED. ON PUREE DIET AND HAS A TRIPPLE LUMEN PICC LINE TO HIS LUE WITH DRESSING INTACT. BLOOD SAMPLE TAKEN TO LAB THIS AM. PATIENT IS INCONTINENT OF BLADDER. BS AT 309 WAS RECHECKED AND NOTED AT 180. HE IS A MAX ASSIST WITH CARE AND TRANSFER. CONTINUE CARE.
[2020-12-30 08:00] VITALS: BP 121/54
[2020-12-30 08:15] VITALS: BP 121/54
[2020-12-30 09:36] LABS: MAGNESIUM 1.7 mg/dL (1.8-2.4)
--- NOTE | 2020-12-30 16:50 | NUR ---
Chart review, spoke with hannah, and have visited with both and son camilo prior to acute rehab. Federico lives with sig other, drinks alcohol daily and so does his sig other. Federico does not live wit his hannah. Prior to hospital he was independent. Mange own medication. No dme. had dm supplies and gave him self his own insulin prior to hospital. No hh or rehab in the past. [facility].
--- NOTE | 2020-12-30 18:36 | NUR ---
ASSUMED CARE OF PT AT 0700. PT ALERT TO SELF ONLY. PT CONFUSED WITH TIME, PLACE, SITUATION. PT IMPULSIVE. PICC LINE DC'D TODAY. PT INSULIN FLUCTUATING THROUGHOUT SHIFT. WILL CONTINUE TO MONITOR.
--- NOTE | 2020-12-31 04:20 | NUR ---
ASSUMED CARE AT 1900 OF 12/30. PATIENT A&O TO SELF ONLY, VERY CONFUSED AND REPORTS HAVING HALLUCINATIONS. PATIENT REPORTS SEEING PEOPLE IN HIS WINDOW WHEN IN THE DARK IN HIS ROOM, WHEN LIGHTS ARE TURNED ON HE REALIZES THEY ARE NOT THERE. PATIENT IS IMPULSIVE HAS TRIED TO GET OUT OF BED SEVERAL TIMES, STATING HE NEEDS TO LEAVE BECAUSE HE HAS THINGS TO DO. PATIENT IS NOT EASILY REDIRECTED, BUT CAN BE DISTRACTED WITH VARIOUS TASKS WHILE SITTING AT NURSES STATION WITH STAFF. PATIENT WAS PUT BACK TO BED AROUND 0330 AND ONLY RESTED FOR ABOUT HALF AN HOUR AND AWOKE BY TRYING TO GET OUT OF BED AGAIN. PATIENT DID RECEIVE FIRST DOSE OF SEROQUEL AT HS OF 12/30. PATIENT HAS HAD A COUPLE EPISODES OF BLADDER INCONTINENCE IN BED. HEATING PAD APPLIED TO BACK OF NECK TO ALLEVIATE NECK PAIN. PATIENT REPORTS HEATING PAD IS EFFECTIVE AT RELAXING HIS NECK. MODERATE ASSIST USING WALKER AND GB TO TRANSFER AND AMBULATE. PATIENT HAS BEEN ASSISTED BACK INTO BED, AND IS RESTING BUT NOT SLEEPING. FALL PRECAUTIONS IN PLACE, CALL LIGHT WITHIN REACH. WILL CONTINUE TO MONITOR.
[2020-12-31 06:35] LABS: CALCIUM 8.8 mg/dL (8.5-10.1); CREATININE 1.4 mg/dL (0.7-1.3); MAGNESIUM 1.7 mg/dL (1.8-2.4); POTASSIUM 3.9 mmol/L (3.5-5.1)
[2020-12-31 08:00] VITALS: BP 102/56
--- NOTE | 2020-12-31 12:35 | NUR ---
Alert and orientated to name only. Thinks he is in [place] and day is in September. Confused speech. Impulsive at times, chair alarm in place. Several phone calls from son, states family does not want pt to receive any sleep medication or sedating medication d/t he believes confusion is related to oversedation at "your hospital." Wants it documented that pt is not to receive above medications per family request. Dr. Forde notified discussed with . Breath sounds clear. Reg HR auscultated. Color pink with brisk capillary refill and palpable peripheral pulses. Continent of yellow urine per urinal and toilet. Active bowel sounds over soft, flat abdomen. Currently sitting with in dining room.
[2020-12-31 19:48] VITALS: BP 140/69
[2021-01-01 05:10] LABS: ALBUMIN 2.5 g/dL (3.4-5.0); CALCIUM 8.9 mg/dL (8.5-10.1); CREATININE 1.4 mg/dL (0.7-1.3); MAGNESIUM 1.6 mg/dL (1.8-2.4); PHOSPHORUS 3.3 mg/dL (2.6-4.7); POTASSIUM 3.2 mmol/L (3.5-5.1); TOTAL BILIRUBIN 0.6 mg/dL (0.2-1.0); TOTAL PROTEIN 7.3 g/dL (6.4-8.2)
[2021-01-01 05:16] LABS: ABSOLUTE NEUTROPHILS 4.5 thou/uL (1.4-8.2); EOSINOPHILS 1.9 % (0.0-3.0); HEMATOCRIT 30.7 % (42.0-52.0); HEMOGLOBIN 10.3 gm/dL (14.0-18.0); LYMPHOCYTES 32.9 % (24.0-44.0); MCH 32.5 pg (26.0-34.0); MCHC 33.4 g/dL (28.0-37.0); MCV 97.4 fL (80.0-100.0); MONOCYTES 9.4 % (1.0-8.0); POLYS 54.8 % (36.0-66.0); RBC 3.16 mil/uL (4.50-6.00); RDW 13.3 % (10.5-14.5); WBC 8.3 thou/uL (4.0-11.0)
[2021-01-01 05:38] LABS: PLATELET COUNT 486 thou/uL (150-400)
[2021-01-01 08:45] VITALS: BP 133/72
--- NOTE | 2021-01-01 17:34 | NUR ---
ASSUMED CARE OF P[T AT 0700 THIS MORNING. PT IS CONFUSED AND UNAWARE OF SURROUNDINGS. PT IS IMPULSIVE AND HAS NOT SLEPT THE WHOLE NIGHT. ASSESSMENTS NOTED IN CHART AND OTHERWISE UNREMARKABLE. PT HAS HAD FANILY WITH HIME MOST OF THE DAY. PT MAY BE ABLE TO SLEEP BETTER THIS EVENING SINCE HE WAS UP AND ACTIVE THROUGHOUT THE DAY. DR. DE ORDERED TRAMADONE, MELETONIN AND ZYPREXA FOR EVENING. ASSESSMENT NOTED IN CHART AND OTHERWISE UNREMARKABLE. FALL PRECAUTIONS ARE IN PLACE, CALL LIGHT AND OTHER NEEDS ARE IN REACH. IV STARTED DUE TO MAG SULFATE gtt, NS 500ML AT 50ML/HR. MEDS AND TX GIVEN NEEDED AND SCHEDULED,. WILL MONITOR AND NOTE ANY CHANGES.
[2021-01-01 19:12] VITALS: BP 120/56
--- NOTE | 2021-01-02 03:02 | NUR ---
PT ASSESSMENT COMPLETED AND VSS. MEDS GIVEN ORDERED AND WELL TOLERATED. IVF COMPLETED. PT ABLE TO DRINK NECTOR THICK LIQUIDS. BLADDER SCAN ONLY 240. PT VOIDING LARGE AMOUNTS OF YELLOW URINE DURING THE NIGHT. NEEDING STOOL FOR OCCULT BLOOD. NO STOOL SO FAR THIS EVENING. PT WAS RESTING WELL EARLY DURING THE SHIFT AFTER RECEIVING MEDICATIONS TO HELP HIM SLEEP AND CONTROL AGITATION. LATER ON IN THE EVENING PT BECAME AGITATED, IMPULSIVE, AND YELLING. PT WAS NOT ABLE TO BE REORIENTED. PT WAS CLIMBING OUT OF BED AND NOT SAFE. SITTER IN THE ROOM WORKING WITH PT DURING THE NIGHT. CONTACTED NEUROLOGY DR DE LUNA. ORDERS GIVEN FOR ADDITIONAL TRAZADONE AND IM XYPREXA. CONTACTED FAMILY ABOUT PTS AGITATION AND THAT HE WAS NOT SLEEPING. ALSO INFORMED FAMILY THAT NEURO ORDERED ADDITIONAL MEDICATION TO HELP PT. FAMILY DECIDED IT WAS OK TO GIVE ADDITION MEDICATION BECAUSE THEY WANT TO FOLLOW NEUROLOGY'S SUGGECTIONS. THEN 30 - 40 MINUTES LATER PT WAS CALM EVEN BEFORE GETTING ORDERED MEDICATION FROM NEURO. CONTACTED NEURO AGAIN FOR PRN DOSE ORDERS INSTEAD JUST IN CASE NEEDED DURING THE NIGHT. PER ORDERS GAVE PT THE 50 MG OF TRAZADONE WITHOUT BENEFIT. THEN PT BECAME AGITATED AGAIN. GAVE PT IM DOSE OF ZYPREXA. NOW PT RESTING AGAIN BUT AWAKE. SO FAR PT MAY HAVE SLEPT 1 HOUR THIS EVENING. WILL CONTINUE TO MONITOR FREQUENTLY.
[2021-01-02 05:58] LABS: ABSOLUTE NEUTROPHILS 5.5 thou/uL (1.4-8.2); BASOPHILS 0.9 % (0.0-2.0); EOSINOPHILS 1.6 % (0.0-3.0); HEMATOCRIT 27.5 % (42.0-52.0); HEMOGLOBIN 9.3 gm/dL (14.0-18.0); LYMPHOCYTES 26.8 % (24.0-44.0); MCH 33.4 pg (26.0-34.0); MCV 98.5 fL (80.0-100.0); MONOCYTES 8.2 % (1.0-8.0); PLATELET COUNT 484 thou/uL (150-400); POLYS 62.5 % (36.0-66.0); RBC 2.79 mil/uL (4.50-6.00); RDW 13.1 % (10.5-14.5); WBC 8.8 thou/uL (4.0-11.0)
[2021-01-02 06:36] LABS: CALCIUM 8.7 mg/dL (8.5-10.1); CREATININE 1.5 mg/dL (0.7-1.3); POTASSIUM 4.3 mmol/L (3.5-5.1)
[2021-01-02 07:15] VITALS: BP 146/72
--- NOTE | 2021-01-02 08:32 | NUR ---
PT STAYED AWAKE ALL NIGHT. PT DID GO IN AND OUT OF SLEEP FOR ABOUT 1 HOUR. EVEN DURING THAT TIME PT WAS NOT REALLY SLEEPING BUT JUST CLOSING HIS EYES FOR A FEW MOMENTS AND THEN OPENING THEM AGAIN. ALL NIGHT PT WAS HALLUCINATING, YELLING OUT, AND CLIMBING OUT OF BED. PT HAD TIMES WHERE HE WAS VERY AGITATED AND TRYING TO HIT STAFF. EARLY THIS MORNING PT NEEDED TO BE GIVEN SECOND DOSE OF IM XYPREXA. PT IS A LITTLE CALMER BUT IS STILL AND AWAKE AND FIGHTING SLEEP. REPORT GIVEN TO ONCBALTAZAR DAY RN.
--- NOTE | 2021-01-02 19:20 | NUR ---
PT ALERT TO SELF ONLY WITH VISUAL HALLUCINATIONS. VSS. PT TOLERATES MEDS AND MEALS. PT WORKED WELL WITH PT/OT TODAY. PT VERY IMPULSIVE, AND NEEDS TO BE REMINDED FREQUENTLY TO CALL FOR HELP WHEN WANTING TO GET OUT OF THE BED OR CHAIR. PT FAMILY AT BEDSIDE FOR MOST OF THE SHIFT. WILL CONTINUE TO MONITOR.
--- NOTE | 2021-01-03 01:20 | NUR ---
assumed care approx 1900 evening 01/02. pt sleeping in bed at change of shift. did not awaken pt for vitals and hs meds per family request. pts blood sugar checked approx 2230 and result 104. pt given hs meds at that time as he was becoming more awake, confused, and impulsive. meds given with small amt yogurt and nectar thick water tolerating well. pt sleeping off and on requiring staff to stay with pt in room as pt is sometimes restless and pulls covers off. pt did void 200ml per urinal and given warm blanket. now resting again, bed alarm on and this publicity writer in room with pt while charting this note. will continue to monitor.
--- NOTE | 2021-01-03 03:25 | NUR ---
PT SLEEPING OFF AND ON AND APPROX 0200 STARTED BECOMING MORE AGGRESSIVE, HALLUCINATING, CONFUSED, BECOMING MORE IMPULSIVE TRYING TO CRAWL OUT OF BED REPEATEDLY. NURSE PRACTIONER PAGED AND TOLD TO CALL NEUROLOGY FOR ORDER PER FAMILY REQUEST. NEUROLOGY PAGED AND DR ROTHMAN TALKED TO AND NOW HERE SEEING PT. DR ROTHMAN TALKING EXTENSIVELY WITH FAMILY AT PRESENT ON PHONE-BOTH XWIFE AND SON ON PHONE NOW WITH PHYSICIAN. WILL MONITOR.
--- NOTE | 2021-01-03 05:16 | NUR ---
pt continued to be impulsive, trying to get out of bed, uncooperative. Xyprexa 5mg IM given as ordered. pt still awake at this time, confused, sometimes stating he wants to leave and go to his grandsons birthday libertarian. pt oriented x1. staff have had to stay with pt entire nightshift so far. tariff supervisor aware. per PIG MACHINE CRANE OPERATOR Shayla Guardado for this nurse to report to dayshift nurse that will need to see pt today. will report to day nurse Mildred. billet shearer sitting with pt at present. bed alarm on. will continue to monitor.
--- NOTE | 2021-01-03 05:41 | NUR ---
called MONA Guardado regarding ordering 1 on 1 with pt and she advised to contact Dr Alonso this am and Dr Alonso will determine course of action for pt.
[2021-01-03 07:15] VITALS: BP 136/70
--- NOTE | 2021-01-03 07:23 | NUR ---
PT CONTINUED TO REMAIN AWAKE DESPITE IM INJECTION OF ZYPREXA AT 0416. STAFF WITH PT ENTIRETY OF NIGHT. DR GUERRA ANSWERING SERVICE CALLED AND MESSAGE LEFT WITH SALES AGENT BUSINESS SERVICES FOR DR GUERRA TO SEE PT TODAY. REPORT GIVEN TO MYLA KELLOGG RN TO ABOVE. JUST TALKED TO SON CONCEPCION AND GIVEN UPDATE ON STATUS OF NIGHT AND NOTIFIED CONCEPCION ABOUT PTS STATUS AND MESSAGE LEFT FOR DR GUERRA.
--- NOTE | 2021-01-03 08:55 | NUR ---
PT SITTING IN W/C THIS AM WORKING WITH THERAPY. PT WAS ABLE TO TAKE PO MEDS WITH NECTOR THICK LIQUIDS WITHOUT ANY ISSUES. PT LUNGS CLEAR. PT ALERT AND CONFUSED AT TIMES. PT HAS DEXACOM INSULIN BARKING MACHINE FEEDER TO ABD. PT STATED THAT THE EQUIPEMENT IS OUT DATED HERE, BY CHECKING HIS FINGER. PT BLOOD SUGAR IS 452, NO S/S OF HYPERGLYCEMIA.
--- NOTE | 2021-01-03 12:00 | NUR ---
CLARICE IS HERE AND WANTING TO TALK TO JEANETTE DUNN, ABOUT HIS INSULIN. SHE IS UPSET AND THINKING THAT THE NURSES HAVE TO GO TO PHARMACY TO GET INSULIN AND WHEN HE GETS CHECKED HE NEEDS HIS INSULIN RIGHT AWAY. THIS ECONOMIC HISTORY TEACHER TOLD THAT HE IS IN THERAPY AT THIS TIME AND HE NEEDS TO HAVE A TRAY IN FRONT OF HIM BEFORE FAST ACTING INSULIN. IS CONCERNED ABOUT THE ELEVATED BS TODAY. LUNCH SUGAR IS 439 AND PT WAS GIVEN 23 UNITS.
--- NOTE | 2021-01-03 12:50 | NUR ---
DR. GUERRA HERE TO SEE PT AND EX-. SHE IS ASKING QUESTIONS ABOUT MEDICATION FOR BEHAVIOR.
--- NOTE | 2021-01-03 14:13 | NUR ---
Team meeting, recommendation: HANDLE SEWER has visited with pt and family today. Question and concerns addressed by HANDLE SEWER. severe memory and cognition. Will be getting video swallow. puree and nectar thick. sig other/roommate works aircraft time clerk. dc 01/13 with 24hr supervision, hh ( pt, ot, st, nursing, sw), private adult daycare. Encourage sig other to remove ethol from home. Refrain from drinking alcohol. No driving. FWW.
--- NOTE | 2021-01-03 17:02 | NUR ---
PT WAS RESTING FOR A COUPLE OF HRS. PT TRYING TO GET UP AND STATED HE NEEDED TO VOID. PT ABLE TO VOID IN URINAL OF 100ML. PT DIDN'T WANT TO LAY IN BED FOR DINNER, PT GOT UP TO W/C TO EAT. PT THINKS HE IS IN A CRUISE SHIP. REORIENTED PT TO HOSPITAL. PT AT BEDSIDE. PT TOOK MEDS WITH THICKENED WATER WITHOUT COUGHING.
--- NOTE | 2021-01-03 17:30 | NUR ---
PT NEEDING TO USE BATHROOM. ASSISTED PT TO BATHROOM VIA W/C. PT ABLE TO HOLD ONTO BARS AND GET TO TOILET. PT DID HAVE MED BM, SAMPLE TAKEN DOWN FOR TEST. PT ABLE TO STAND WHEN GETTING WIPED. PT TRANSFERED BACK TO W/C. PT WANTED TO LAY DOWN DUE TO HIS NECK WAS HURTING.
[2021-01-03 21:42] VITALS: BP 110/63
--- NOTE | 2021-01-04 00:01 | NUR ---
PT ASSESSMENT COMPLETED AND VSS. MEDS GIVEN ORDERED AND WELL TOLERATED. PT AGITATED AND TRYING TO CLIMB OUT OF BED CONSTANTLY. PT STATING THAT HE NEEDED TO GET SHOWERED RIGHT AWAY BECAUSE HE HAD TO HELP WITH THE GRANDKIDS. PT THOUGHT THAT IT WAS DAYTIME. UNABLE TO REORIENT PT. ENC PT TO TRY AND REST. PT WOULD LAY HIS HEAD DOWN THEN IMMEDIATELY SIT BACK UP AND TRY TO CLIMB OUT OF BED. PRN HALDOL WAS NEEDED AND GIVEN. SECOND DOSE OF TRAZADONE WAS NEEDED. PT FINALLY RESTING AT 0005. NOT SLEEPING YET. JUST RESING. SITTING IN PT ROOM FOR PT SAFETY. WILL CONTINUE TO MONITOR FREQUETLY.
[2021-01-04 07:15] VITALS: BP 131/57
--- NOTE | 2021-01-04 10:29 | NUR ---
DISCHARGE PLANNING: PER PT'S 'S REQUEST YESTERDAY, AND WITH PT'S VERBAL APPROVAL IN THE PRESENCE OF HIS , ADDITIONAL INFORMATION AND CLARIFICATION REGARDING THE DISCHARGE PLAN AND RECOMMENDATIONS WERE GIVEN OVER THE PHONE TO PT'S SON PHILIP VAIL TODAY. HE VERBALIZED AGREEMENT WITH THE PLAN FOR 24 HOUR CARE, AND WILL DISCUSS OPTIONS FOR CAREGIVERS IN THE HOME VS INPATIENT SKILLED LEVEL OF CARE AT A FACILITY, AND THEY WILL DEVELOP A SOLID PLAN SOON. REITERATED TO HIM THAT THE PRIMARY CONTACT IS HIS MOTHER, AND THAT ALL INFORMATION WILL BE FILTERED THROUGH HER GOING FORWARD, BUT THAT I AM OF COURSE AVAILABLE FOR QUESTIONS IF NEEDED.
--- NOTE | 2021-01-04 11:14 | NUR ---
ASSUMED CARE AT 0700. PATIENT IS ALERT AND ORIENTED X1. PATIENT CONFUSED. PATIENT CONTINUES TO BE COMBATIVE AT TIMES WELL HALLUCINATIONS. PATIENT VALDEZ'S, DIRECTOR PUBLIC ARE EQUAL. LUNGS ARE CLEAR AND DEMINISHED. ABD IS SOFT WITH BSX4. UP WITH ASSIST OF 1 STAFF AND GAIT BELT TO VOID NEW COLORED URINE. PATIENT SHUFFLES. PATIENT IS UP IN W/C FOR MEALS. BS [facility]. LAB ORDERED. PATIENT HAD VIDEO SWALLOW. DIET CHANGED TO [facility] SOFT/GROUND WITH THIN LIQUIDS. PILLS ARE TO BE CRUSHED AND PUT IN APPLESAUCE. PATIENT CAN GO OUTSIDE WITH FAMILY IN ATTENDENCE ONLY. PATIENT HAS INCONTINENCE OF URINE AT TIMES. FALL AND SAFETY PROTOCOLS IN PLACE. DENIES PAIN AT THIS TIME. CONTINUES TO PROGESS SLOWLY TOWARDS D/C GOALS. WILL CONTINUE TO MOITER.
--- NOTE | 2021-01-04 15:18 | NUR ---
cm spoke with his via phone call, she requested to talk. she had many question about why not getting 3 weeks, how is he going to improve in less than week for dc. CM cont re-education on rehab needs and medically needs to stay in hospital. Supervision and cues, asked if can stay with her or son for while before returning home to see if mind clears more? She cont to say that dr are say give time for brain to heal and going to dc in less week. Education on LAST, and adult daycare's. Will cont following as needed for dc needs.
[2021-01-04 19:56] VITALS: BP 117/60
--- NOTE | 2021-01-04 21:20 | NUR ---
ASSUMED CARE OF PT AT 1915. PT IS A&OX4. IS CALM & PLEASANT. IS STABLE. IS ON ROOM AIR. DENIES PAIN IN NECK AT THIS TIME. LIDOCAINE PATCH REMOVED. K-PAD TO BACK. NO REDNESS NOTED. IS UP WITH 1 ASSIST, GB, WALKER. FALL PRECAUTIONS & HOURLY ROUNDING CONTINUED THIS SHIFT. PT HAS SITTER IN ROOM TONIGHT. SON CALLED TO BE UPDATED ON PT. WILL CALL IN THE AM WELL. LABS & VITALS REVIEWED. PT IS RESTING IN BED QUIETLY. WATCHING TV. CALL LIGHT WITHIN REACH. WILL CONTINUE TO MONITOR.
[2021-01-05 08:00] VITALS: BP 126/57
[2021-01-05 13:27] LABS: URINE BILIRUBIN NEGATIVE (Negative); URINE BLOOD NEGATIVE (Negative); URINE CLARITY CLEAR; URINE COLOR YELLOW; URINE GLUCOSE-RANDOM* TRACE (Negative); URINE KETONES NEGATIVE (Negative); URINE LEUKOCYTES NEGATIVE (Negative); URINE NITRITE NEGATIVE (Negative); URINE PROTEIN (DIPSTICK) NEGATIVE (Negative); URINE SPECIFIC GRAVITY <= 1.005 (1.005-1.035); URINE UROBILINOGEN 0.2 E.U./dl (0.2-1.0)
--- NOTE | 2021-01-05 14:02 | NUR ---
PT ALERT AND ORIENTED TIMES THREE. WITH PERIODS OF CONFUSION. VSS. PT TOLERATES MEDS AND MEALS. PT WORKED VERY WELL WITH PT/OT AND WAS WALKING AROUND THE UNIT. PT PROGRESSING TOWRADS POC GOALS.
[2021-01-05 18:39] VITALS: BP 107/99
[2021-01-05 22:15] VITALS: BP 106/82
--- NOTE | 2021-01-06 | NUR ---
PT ASSESSMENT COMPLETED AND VSS. MEDS GIVEN ORDERED AND WELL TOLERATED. FALL PRECAUTIONS IN PLACE. PT MUCH MORE ORIENTED THIS EVENING BUT DID HAVE TIMES WHERE HE STARTED TO GET UP AND WAS AGITATED. PT SLEEPING AT THIS TIME. UP TO THE BATHROOM WITH ASST/GAIT/WALKER. 15 UNITS LANTUS GIVEN AT HS WITH A SMALL SNACK FOR BG 150. PT SLEEPING WELL AT THIS TIME. WILL CONTINUE TO MONITOR FERQUENTLY. ASST WITH REPOSITION FOR COMFORT.
[2021-01-06 04:56] LABS: ABSOLUTE NEUTROPHILS 2.8 thou/uL (1.4-8.2); BASOPHILS 0.8 % (0.0-2.0); EOSINOPHILS 3.9 % (0.0-3.0); HEMATOCRIT 26.4 % (42.0-52.0); HEMOGLOBIN 8.9 gm/dL (14.0-18.0); LYMPHOCYTES 39.3 % (24.0-44.0); MCH 33.2 pg (26.0-34.0); MCHC 33.6 g/dL (28.0-37.0); MCV 98.7 fL (80.0-100.0); MONOCYTES 11.6 % (1.0-8.0); PLATELET COUNT 514 thou/uL (150-400); POLYS 44.4 % (36.0-66.0); RBC 2.68 mil/uL (4.50-6.00); RDW 13.6 % (10.5-14.5); WBC 6.4 thou/uL (4.0-11.0)
[2021-01-06 06:14] LABS: CALCIUM 8.5 mg/dL (8.5-10.1); CREATININE 1.6 mg/dL (0.7-1.3); MAGNESIUM 1.6 mg/dL (1.8-2.4); POTASSIUM 3.7 mmol/L (3.5-5.1)
[2021-01-06 07:45] VITALS: BP 123/60
--- NOTE | 2021-01-06 08:30 | NUR ---
Cm left senior blue book, pd list choices, adult days brochures and place for mom brochures.
--- NOTE | 2021-01-06 09:01 | NUR ---
PT SITTING IN W/C THIS AM AFTER WORKING WITH THERAPY. PT TOOK NON-CRUSHED MEDS IN APPLESAUCE. PT DID HAVE ISSUES WITH TAKING LARGER PILLS. PT STATED HE HAS PAIN TO NECK OF 6 ON 1-10 SCALE. PT UP WITH WALKER WITH STAND-BY ASSIST. PT DOES HAVE NECK DOWN WHEN SITTING IN CHAIR. PT MORE COGNATIVE AND NOT CONFUSED. PT ORIENTED X4.
--- NOTE | 2021-01-06 10:24 | NUR ---
ADM MAG 400MG PO X1 PER ORDERS.
--- NOTE | 2021-01-06 13:30 | NUR ---
SON FLYNN HERE AND TOOK HIS DEXACOME RECIEVER AND TOOK IT HOME.
--- NOTE | 2021-01-06 14:30 | NUR ---
PT WAS ABLE TO GO OUTSIDE WITH FAMILY. PT WAS WALKING WITH THERAPY WITHOUT A WALKER THIS AFTERNOON.
[2021-01-06 21:39] VITALS: BP 124/64
--- NOTE | 2021-01-07 01:46 | NUR ---
assumed care approx 1900 evening 01/06. pt lying in bed sleeping at change of shift. sitter at bedside this night. pt awoke approx 2100 and given hs meds and insulin as ordered. pt alert and oriented, appropriate and cooperative, somewhat forgetful. sitter assisted pt with urinal to void. pt has been sleeping soundly so far this night. bed alarm on and sitter at bedside. will continue to monitor.
--- NOTE | 2021-01-07 05:27 | NUR ---
pt has continued to sleep throughout the night. pts blood sugar taken at approx 0200. sitter at bedside. will continue to monitor.
[2021-01-07 08:00] VITALS: BP 138/60
--- NOTE | 2021-01-07 09:29 | NUR ---
PT FINISHED WITH THERAPY AT THIS TIME. PT UP IN W/C FOR BREAKFAST. PT COMPLAINS OF NECK PAIN AND STATEDS THE LIDOCAINE PATCH HELPS. PT LUNGS CLEAR. PT ORIENTED TO HOSPITAL AND PERSON. PT HAD BM YESTERDAY. PT ABLE TO TAKE MEDS IN APPLESAUCE CRUSHED. PT TOLERATING THIN LIQUIDS. PT UP X1 STAND-BY ASSIST. PT GAIT STEADY.
--- NOTE | 2021-01-07 16:18 | NUR ---
DTR WAS HERE VISITING. PT COMPLAINED OF FEELING COLD, GAVE PT WARM BLANKET. PT WAS OUTSIDE TODAY PRIOR TO LUNCH WITH SON VIA W/C. PT SEEMS MORE ORIENTED AND CALMER.
[2021-01-07 19:47] VITALS: BP 115/57
--- NOTE | 2021-01-07 23:20 | NUR ---
PT ALERT, ORIENTED X 3 AND NO LONGER EXHIBITING IMPULSIVITY AT THIS TIME. PT ASKED FOR SOMETHING FOR PAIN FOR HIS FEET. UPON EXAMINATION, NOTED THAT THERE IS A BLISTERED AREA AT LEFT HEEL AND RT HEEL IS PAINFUL TO THE TOUCH BUT THE ONLY SKIN ISSUE NOTED WAS A CRACK ALONG THE POSTERIOR EDGE OF THE HEEL. BOTH HEELS WERE OFF-LOADED UNTIL THE HS WAS ABLE TO PROCURE BILAT PRAFO BOOTS TO PROTECT HEELS. WOUND TREATMENT RN APPLIED LOTION TO BOTH FEET AND PRAFO BOOTS ARE NOW ON AND PT IS RESSTING COMFORTABLE IN BED AFTER TOILETING. ALARMS ARE ON. PT'S SON CONCEPCION CALLED EARLIER IN THE EVENING, AND ASKED THAT WE HAVE A TELEPHONE CONFERENCE TO REVIEW WHAT WAS SAID FOLLOWING TEAM CONFERENCE ON SATURDAY, AND THIS WAS ADDED TO THE END OF SHIFT REPORT AND A MESSAGE SENT TO THE PUDDLER HELPER TO REQUEST THAT THIS WOULD BE SET UP FOR SATURDAY AFTERNOON OR SOMETIME SATURDAY.
[2021-01-08 07:15] VITALS: BP 111/58
[2021-01-08 10:00] VITALS: BP 110/56
[2021-01-08 19:24] VITALS: BP 110/56
--- NOTE | 2021-01-09 02:06 | NUR ---
assumed care approx 1900 evening 01/08. pt sitting up in bed alert and oriented x4 at change of shift. pt pleasant and cooperative, talked on phone until approx 2300. pt voiding per urinal. took hs meds one at a time with water tolerating well. pt appears to be sleeping soundly. bed alarm on and call light in reach. will continue to monitor.
[2021-01-09 08:00] VITALS: BP 137/65
--- NOTE | 2021-01-09 11:00 | NUR ---
ASSUMED CARE AT 0700. PATIENT IS ALERT AND ORIENTED X 3-4. PATIENT VALDEZ'S, FACILITY WORKER ARE EQUAL. LUNGS ARE CLEAR AND DEMINISHED. ABD IS SOFT WITH BSX4. LAXATIVE GIVEN. VOIDING NEW COLORED URINE PER URINAL. UP IN BED FOR BREAKFAST WITH S.T. UP WITH ASSIST OF 1 STAFF AND GAIT BELT TO THE BATHROOM. FALL AND SAFETY PROTOCOLS IN PLACE. DENIES PAIN AT THIS TIME. CONTINUES TO PROGRESS SLOWLY TOWARDS D/C GOALS. WILL CONTINUE TO MONITER.
--- NOTE | 2021-01-09 15:34 | NUR ---
Cm called hannah, to see if family has had a change to decided on option for safe dc. Unable to leave a message r/t mailbox is full. Will cont following as needed for dc needs.
[2021-01-09 19:37] VITALS: BP 126/65
--- NOTE | 2021-01-10 | NUR ---
PT ALERT AND ORIENTED X 4, FORGETFUL. IMPULSIVE FREQUENTLY. NEEDS FREQUENT REMINDERS TO CALL FOR ASSISTANCE WHEN GETTING UP. AMB WITH WALKER WITHOUT DIFFICULTY. BLOOD SUGAR 302 AT HS. INSULIN GIVEN ORDERED. PT DENIES PAIN OR DISCOMFORT. BED ALARM ON FOR SAFETY. PT EASILY VISIBLE FROM NURSES STATION. PT HAS BEEN AWAKE ALL NIGHT SO FAR, TALKING ON THE PHONE.
[2021-01-10 08:00] VITALS: BP 123/60
--- NOTE | 2021-01-10 09:12 | NUR ---
PT FINISHED WORKING WITH THERAPY. PT STATES THAT THE LIDOCAINE PATCH TO NECK REALLY HELPS HIS PAIN. PT LUNGS CLEAR AND ON ROOM AIR. PT STATED HE CAN TAKE MEDS WHOLE NOW WITH THIN WATER. PT ORIENTED TO PERSON, PLACE AND SITUATION. PT USES WALKER IN [place] AND ALSO WALKED [facility] THERAPY WITHOUT A WALKER. PT STILL COMPLAINS OF HEELS HURTING, PT DOES KEEP SHOES ON WHILE IN BED DUE TO DIFFICULTY OF GETTING SHOES ON WHEN GETTING UP.
--- NOTE | 2021-01-10 13:30 | NUR ---
team meeting, recommendation needs assist with medication and finances. will need initial supervision, intermittent. no driving. hh ( pt, ot, st, nursing and sw) and [facility]. possible private duty home. Refrain from drinking alcohol. going to look at the [facility].
--- NOTE | 2021-01-10 14:00 | NUR ---
IS HERE TO SEE PT AND WANTED TO TALK TO CM ABOUT HIS CONDITION DUE TO MEETING WITH INDIVIDUALS AT THE [facility] AND SEE WHAT CARE HE NEEDS.
[2021-01-10 20:00] VITALS: BP 125/57
--- NOTE | 2021-01-11 02:58 | NUR ---
ASSUMED CARE OF PT AT 1940 ON 01/10/21. PT IS A&OX4. IS FORGETFUL & IMPULSIVE. IS STABLE. DENIES PAIN IN NECK. LIDOCAINE PATCH REMOVED. HAS URINARY URGENCY & FREQUENCY. VOIDS PER URINAL & WALKS TO BATHROOM WITH STANDBY ASSIST, GB, WALKER. FALL PRECAUTIONS & HOURLY ROUNDING CONTINUED THIS SHIFT. LABS & VITALS REVIWED. PRAFO BOOTS ON IN BED. PT EDUCATION PROVIDED. PT HAS PRESSURE WOUND ON HEEL. PIC TAKEN BY DAY SHIFT NURSE & IS IN CHART. BS 221 LAST NIGHT. 25 UNITS OF LONG-ACTING INSULIN ADMINISTERED ORDERED. PT IS CURRENTLY IN BED ASLEEP. CALL LIGHT WITHIN REACH. WILL CONTINUE TO MONITOR.
[2021-01-11 07:15] VITALS: BP 123/61
--- NOTE | 2021-01-11 11:08 | NUR ---
ASSUMED CARE AT 0700. PATIENT IS ALERT AND ORIENTED X4. PATIENT VALDEZ'S, APPLICATION DESIGN ENGINEER ARE EQUAL. LUNGS ARE CLEAR AND DEMINISHED. ABD IS SOFT WITH BSX4. PATIENT IS UP ON SIDE OF BED TO VOID NEW COLORED URINE, UP IN W/C FOR MEALS. PATIENT IS UP WITH WALKER WITH ASSIST OF 1 STAFF WITH GAIT BELT. FALL AND SAFETY PROTOCOL IN PLACE. C/O PAIN IN HIS NECK. MEDICATED WITH PAIN PATCH. HEATING PAD GIVEN TO PATIENT FOR HIS NECK PAIN. PATIENT HAS LEFT HEEL ABRASION. WOUND CARE TEAM HERE TO SEE PATIENT. TX ORDERED FOR BETADINE TO BOTH HEELS AND PRAFO BOOTS WHEN IN BED. CONTINUES TO PROGRESS SLOWLY TOWARDS D/C GOALS. PLAN D/C ON SATURDAY. WILL CONTINUE TO MONITER.
--- NOTE | 2021-01-11 13:44 | NUR ---
passed on to unit nurse convenience store manager that son has question about his insurance and dcp.
[2021-01-11 20:21] VITALS: BP 134/59
--- NOTE | 2021-01-11 23:46 | NUR ---
PT ALERT AND ORIENTED X 4. IMPULSIVE AT TIMES. AMB TO BR WITH WALKER AND ASSIST X 1 WITHOUT DIFFICULTY. BLOOD SUGAR 290 AT HS. LANTUS INSULIN GIVEN ORDERED. PT DENIES PAIN OR DISCOMFORT. BED ALARM ON FOR SAFETY. PT CHECKED ON HOURLY ROUNDS. SLEEPING AT INTERVALS.
[2021-01-12 08:00] VITALS: BP 104/54
--- NOTE | 2021-01-12 08:24 | NUR ---
PT SITTING UP IN W/C THIS AM WORKING WITH ST. PT TOOK MEDS WHOLE WITHOUT ANY ISSUES. PT LUNGS CLEAR. PT DIDN'T COMPLAIN OF NECK PAIN THIS AM. PT HAS HEATING PAD ON BED FOR COMFORT. PT UP WITH STAND-BY ASSIST WITH GAIT BELT AND WALKER. PT PLEASANT TO STAFF. NO ISSUES WITH BEHAVIOR.
--- NOTE | 2021-01-12 13:45 | NUR ---
Spoke with his hannah via phone call, kinza is happy [facility], he will has comfort care to help him, he will have therapy. Help him showering and going to meals. We spoke with him about going to his own apartment and he did not fight us, he is happy since he has family there as well per hannah. Will cont following as needed for dc needs.
[2021-01-12 15:21] VITALS: BP 104/54
--- NOTE | 2021-01-12 16:16 | NUR ---
CLARICE HERE AND ASKS ABOUT IF PT HAD A FLU SHOT. PT DID RECIEVE FLU SHOT 01/04/21 HERE.
[2021-01-12 20:00] VITALS: BP 123/58
--- NOTE | 2021-01-13 02:51 | NUR ---
ASSUMED CARE AT 1900 OF 01/12. PATIENT IS A&OX4, CAN BE IMPULSIVE, REQUIRES REMINDER TO USE CALL LIGHT. STAND BY ASSIST WITH TRANSFERS AND AMBULATION, USING WALKER AND GB. HS BLOOD GLUCOSE LEVEL WAS 205, INSULIN GLARGINE ADMINISTERED ORDERED. DENIES ACUTE PAIN OR SOB. SLEEPING DURING HOURLY ROUNDS, FALL PRECAUTIONS IN PLACE. WILL CONTINUE TO MONITOR.
[2021-01-13 08:00] VITALS: BP 117/56
[2021-01-13] MEDS ORDERED: LANTUS SUBQ ×2 (08:43→13:46)
[2021-01-13] MEDS ORDERED: MELATONIN5 M1 PO ×2 (08:43→13:46)
[2021-01-13] MEDS ORDERED: NOVOLOG100 UNIT/1 SUBQ ×2 (08:43→13:46)
[2021-01-13] MEDS ORDERED: TRAZODONE HCL50 MG PO ×4 (08:43→13:46)
[2021-01-13] MEDS ORDERED: MAGOX 400400 MG PO ×3 (08:43→13:48)
[2021-01-13] MEDS ORDERED: VITAMIN D325 MC2 PO ×2 (08:43→13:46)
[2021-01-13] MEDS ORDERED: MIRALAX17 GM PO ×3 (08:43→14:20)
[2021-01-13] MEDS ORDERED: HALOPERIDOL 5 MG5 MG PO ×2 (08:43→13:46)
[2021-01-13] MEDS ORDERED: DEPAKOTE SPRIN125 MG PO ×2 (08:43→13:46)
[2021-01-13] MEDS ORDERED: PROTONIX 20 MG20 MG PO ×2 (08:43→13:46)
[2021-01-13 08:58] VITALS: BP 117/56
--- NOTE | 2021-01-13 08:59 | NUR ---
PT SITTING UP IN W/C THIS AM. PT STATED HE NEEDED THE LIDOCAINE PATCH TO NECK DUE TO IT REALLY HELPING. PT TOOK MEDS WHOLE WITH THIN WATER. PT DISCHARGING TODAY TO THE [facility]. PT STATED ITS A NICE PLACE AND THEY HAVE A INDOOR POOL AND OUTDOOR POOL AND GOOD FOOD. ASKED PT HOW LONG HE WILL BE THERE, PT STATED HE COULD LIVE THERE INDEFINITELY.
--- NOTE | 2021-01-13 12:07 | NUR ---
Spoke with hannah who will be picking him up between 1300 and 1330. Going to dc to [facility] [place], with continua and comfort care private duty. requested medication be called into [facility] outpt pharmacy so she can pick them up before he is dc today. Provider plus delivered fww today. Faxed updates to the [facility] and his negative covid test and faxed to [facility] health dc orders. Will cont following as needed for dc needs.
--- NOTE | 2021-01-13 13:28 | HC ---
[facility] [place] [address] CONSULTATION Name: LEONELA BARKLEY Room #: 514-P ADM IN M.R.#: [id number] Admission: 12/29/20 Attend Phys: Esa De La Rosa MD Discharge: Date of : 51 Report #: [id number] THIS REPORT FOR: cc: Jesus Avitia MD, James E. MD Stephens, Thad A. MD ~ DATE OF SERVICE: 01/11/2021 WOUND CARE CONSULTATION PERSONAL PHYSICIAN: Jesus Avitia M.D. CHIEF COMPLAINT: Bilateral heel ulcers. HISTORY OF PRESENT ILLNESS: In summary, this is a 65-year-old white male who was initially admitted for diabetic ketoacidosis and also had a recent fall with head injury. The patient has been hospitalized now for several days. The patient is admitted to the rehabilitation unit and upon admission to the rehab unit was noted to have bilateral deep tissue injury to the heels/foot; he does complain of mild pain. The patient also had some scattered abrasions on his left gordillo from the previous fall. The patient denies any other associated wounds at this time. Nursing staff deny any wounds as well. PAST MEDICAL HISTORY: Significant for diabetic ketoacidosis, diabetes mellitus type 1, alcohol abuse, hyperlipidemia, coronary artery disease with recent cardiac catheterization and stent placement. CURRENT MEDICATIONS: Multiple, I reviewed the patient's medication list. DRUG ALLERGIES: None. SOCIAL HISTORY: The patient drinks alcohol daily. Denies tobacco use. FAMILY HISTORY AND REVIEW OF SYSTEMS: Not pertinent to current medical condition. REVIEW OF SYSTEMS: CONSTITUTIONAL: The patient denies fevers or chills. NEUROLOGIC: The patient complains of overall generalized weakness, but no isolated weakness in arms or legs. EYES: No complaints. EARS, NOSE AND THROAT: No complaints. CARDIAC: The patient denies chest pain, palpitations or peripheral edema. RESPIRATORY: The patient denies shortness of breath, cough or wheezes. GASTROINTESTINAL: The patient denies nausea, vomiting, abdominal pain. GENITOURINARY: The patient denies urgency or frequency. [facility] [address] [place] [address] CONSULTATION Name: LEONELA BARKLEY Room #: 514-P [facility] IN M.R.#: [id number] Admission: 12/29/20 Attend Phys: Esa De aL Rosa MD Discharge: Date of : 51 Report #: [id number] MUSCULOSKELETAL: No complaints. SKIN: The patient has bilateral deep tissue injury to heal, some scattered abrasions to the left pretibial region. PHYSICAL EXAMINATION: VITAL SIGNS: Temperature 36.4, pulse 81, respirations 20, BP 104/54. GENERAL: This is alert and oriented x3, chronically ill-appearing white male who is in no obvious distress. HEENT: Normocephalic, atraumatic. Mucous membranes are dry. Pupils are round. Sclerae white. NECK: Without JVD. LUNGS: Clear. HEART: Regular. ABDOMEN: Soft, nontender. EXTREMITIES: The patient moves all extremities without difficulty. Evaluation of bilateral heels reveals deep tissue injury with a boggy heel and ecchymosis to the left heel and bogginess and ecchymosis to the right heel. There are no open ulcerations. Distal pulses are 1+. There is no evidence of any other wounds on the foot. Left pretibial region has multiple scattered abrasions with dry eschar. No signs of erythema, warmth, or cellulitis. NEUROLOGIC: Cranial nerves 2-12 grossly intact. Motor and sensory intact. LABORATORY DATA: White count 6.4, hemoglobin 8.9, BUN 23, creatinine 1.6, albumin 2.5. IMPRESSION: 1. Bilateral deep tissue injuries to the heels, left greater than right. 2. Scattered abrasions to the left pretibial region without signs of cellulitis. 3. Generalized debility. 4. Protein-calorie malnutrition, moderate, with albumin of 2.5. 5. Diabetes mellitus. 6. Coronary artery disease. PLAN: We will start Betadine to the bilateral heels, open to air daily, and p.r.n. We will start heel protectors on the patient at all times. We will paint the patient's left gordillo with Betadine and leave open to air. Make sure we maximize the patient's oral protein supplementation for healing. We will utilize physical and occupational therapy for strengthening. We will continue all other current medications. Appreciate ability to consult. We will continue to follow the patient. <ELECTRONICALLY SIGNED> By: Willie Nunes MD 01/13/21 1328 1217 0015 Willie Nunes MD /nt
--- NOTE | 2021-01-13 13:42 | PLAN ---
[facility] [place] [address] REHAB UNIT PLAN OF CARE Name: LEONELA BARKLEY Room #: 514-P ADM IN M.R.#: [id number] Admission: 12/29/20 Attend Phys: Esa De La Rosa MD Discharge: Date of : 51 Report #: [id number] THIS REPORT FOR: cc: Jesus Avitia MD, James E. MD Smithson,Esa Skinner MD ~ DATE OF SERVICE: 12/31/2020 PROGRESS NOTE/OVERALL PLAN OF CARE HISTORY OF PRESENT ILLNESS: The patient was seen back in followup. He has been afebrile. Temperature 36.6, pulse 67, respirations 16, blood pressure 102/56. I saw him yesterday and visited with he and his partner. He was needing cues and tended to be easily distractible, but followed basic 1-step commands. No focal calf swelling. He did not have any pedal edema. He has been participatory with the therapy program and is needing sit to stand, max assist and has ambulated up to 5 steps with a walker. Bed mobility is min assist. In occupational therapy, he has been at a mod assist for lower body dressing with supervision upper body dressing. Today in speech therapy, he was noted to have severe cognitive deficits with severe memory deficits with moderate comprehensive deficits. ASSESSMENT: 1. Toxic metabolic encephalopathy. 2. Dysphagia. He is on aspiration precautions. 3. Recent fall with closed head injury. 4. Non-ST elevation myocardial infarction, status post stenting. 5. Diabetic ketoacidosis, type 2 diabetes mellitus with elevated hemoglobin A1c. 6. Alcohol withdrawal. 7. Right lower lobe infiltrate. 8. Acute renal insufficiency. 9. Peripheral vascular disease. 10. Question of foot drop on the left. This is being monitored. PLAN: The overall plan of care is based on the pre-admission screen and information garnered from therapy assessments. 1. Estimated length of stay is probably around 14-21 days pending progress. 2. Medical prognosis is reasonably good. 3. Anticipated interventions include the interdisciplinary acute inpatient rehabilitation program. 4. Anticipated functional outcomes would be for the patient to improve as far as transfers, mobility, ADLs, cognition and swallowing issues, so he can return back to the home setting. Goal would be for him to be ambulatory at least at the walker level. 5. Discharge destination would be back to the [place] [address] REHAB UNIT PLAN OF CARE Name: LEONELA BARKLEY Room #: 514-P [facility] IN ..#: [id number] Admission: 12/29/20 Attend Phys: Esa De La Rosa MD Discharge: Date of : 51 Report #: [id number] his partner in a house. 6. Expected therapy by discipline includes PT, OT and speech 1 hour per day each 5 days a week throughout the duration of the acute inpatient rehabilitation stay. ADDENDUM: The patient's prognosis for significant practical improvement within a reasonable period of time appears good. Given the patient's complex medical condition and the risk of further medical complication, rehabilitation services could not be safely provided at the lower level of care such as a long term facility. <ELECTRONICALLY SIGNED> By: Esa De La Rosa MD 01/13/21 1342 1050 1348 Esa De La Rosa MD /nt
[2021-01-13] MEDS ORDERED: Nicotine Transdermal TRANSDERM (13:46)
[2021-01-13] MEDS ORDERED: LIPITOR40 MG PO (13:46)
[2021-01-13] MEDS ORDERED: BAYER CHEWABLE81 MG PO (13:46)
[2021-01-13] MEDS ORDERED: METOPROLOL SUCC50 MG PO (13:46)
[2021-01-13] MEDS ORDERED: EFFIENT10 MG PO (13:46)
[2021-01-13] MEDS ORDERED: VITAMIN B-1100 M2 PO (13:46)
[2021-01-13] MEDS ORDERED: NICOTINE1 EACH TRANSDERM (14:28)
--- NOTE | 2021-01-13 14:53 | NUR ---
PT SON IS HERE TO GLASS LAMINATING OPERATOR HIS MEDICATIONS. PT IS LEAVING TO GO TO [facility]. WAITING FOR TO COME PICK HIM UP. PT WAS INCON. OF STOOL EARILER TODAY AND DID HAVE A SHOWER AND CHANGED HIS CLOTHES. IS HERE NOW, WAITING ON MEDS.
--- NOTE | 2021-01-13 16:00 | NUR ---
PT LEFT VIA W/C AND BELONGINGS AND WALKER. PT LEAVING TO GO TO THE [facility]. IS ACCOMPANIED WITH HIM.
--- NOTE | 2021-01-16 12:22 | NUR ---
[facility], stated never got referral or dc orders. have confirmation on faxes from and saturday. Faxed to [phone].
== END 2021-01-13 16:00 | disposition home health service (06) | DRG 91 ==
PROVIDERS: Internal Medicine; Nurse Practitioner; Nurse Practitioner Family; Psychiatry & Neurology Psychiatry; ADMIT Physical Medicine & Rehabilitation; ATTEND Physical Medicine & Rehabilitation
DX: G92.8 Other toxic encephalopathy (principal); E11.10 Type 2 diabetes mellitus with ketoacidosis without coma; I21.4 Non-ST elevation (NSTEMI) myocardial infarction; J96.01 Acute respiratory failure with hypoxia; N17.9 Acute kidney failure, unspecified; F10.139 Alcohol abuse with withdrawal, unspecified; E44.0 Moderate protein-calorie malnutrition; R13.10 Dysphagia, unspecified; E11.51 Type 2 diabetes mellitus with diabetic peripheral angiopathy without gangrene; M21.379 Foot drop, unspecified foot; E87.6 Hypokalemia; R53.81 Other malaise; E83.42 Hypomagnesemia; D64.9 Anemia, unspecified; I25.10 Atherosclerotic heart disease of native coronary artery without angina pectoris; F17.210 Nicotine dependence, cigarettes, uncomplicated; E78.5 Hyperlipidemia, unspecified; Z20.822 Contact with and (suspected) exposure to COVID-19; S90.32XA Contusion of left foot, initial encounter; S80.812A Abrasion, left lower leg, initial encounter; S90.31XA Contusion of right foot, initial encounter; D75.839 Thrombocytosis, unspecified; R31.29 Other microscopic hematuria; E86.0 Dehydration; G31.84 Mild cognitive impairment of uncertain or unknown etiology; M54.2 Cervicalgia; Z95.5 Presence of coronary angioplasty implant and graft; Z68.22 Body mass index [BMI] 22.0-22.9, adult; Z71.6 Tobacco abuse counseling; X58.XXXA Exposure to other specified factors, initial encounter; Y93.89 Activity, other specified; Y92.89 Other specified places as the place of occurrence of the external cause; Y99.8 Other external cause status
CPT/HCPCS: 10112

== ENCOUNTER → 2021-01-27 | Outpatient (CLI) | payer OTHER ==
[~2021-01-27] MED LIST changes: +DEPAKOTE SPRIN125 MG PO; +HALOPERIDOL 5 MG5 MG PO; +MAGOX 400400 MG PO; +MELATONIN5 M1 PO; +MIRALAX17 GM PO; +NICOTINE1 EACH TRANSDERM; +NOVOLOG100 UNIT/1 SUBQ; +PROTONIX 20 MG20 MG PO; +TRAZODONE HCL50 MG PO; +VITAMIN D325 MC2 PO
== END ==
LOC: SJCVC 11:42
PROVIDERS: ATTEND Internal Medicine Cardiovascular Disease
DX: R94.31 Abnormal electrocardiogram [ECG] [EKG] (principal); I44.0 Atrioventricular block, first degree; I25.10 Atherosclerotic heart disease of native coronary artery without angina pectoris; I10 Essential (primary) hypertension; E78.00 Pure hypercholesterolemia, unspecified; I73.9 Peripheral vascular disease, unspecified; E10.9 Type 1 diabetes mellitus without complications; F19.20 Other psychoactive substance dependence, uncomplicated; I65.23 Occlusion and stenosis of bilateral carotid arteries; E78.5 Hyperlipidemia, unspecified; Z79.82 Long term (current) use of aspirin; Z79.899 Other long term (current) drug therapy; Z87.891 Personal history of nicotine dependence; Z72.89 Other problems related to lifestyle